=== PATIENT | male | born 1955 | race Caucasian/White ===

== ENCOUNTER 2020-05-17 11:19 | Observation (INO) ==
--- NOTE | 2020-05-10 11:15 | PAT Medication Instructions ---
Medication Instructions Date of Service May 10, 2020 Home Medications amlodipine 5 mg PO QAM aspirin [Aspir-81] 81 mg PO QAM atorvastatin 20 mg PO QPM lorazepam 0.5 mg PO BID PRN multivitamin 1 tab PO QAM triamterene-hydrochlorothiazide 1 tab PO QAM DO NOT take the morning of surgery multivitamin 1 tab PO QAM triamterene-hydrochlorothiazide 1 tab PO QAM Take morning of surgery With a small sip of water, OTHERWISE NOTHING TO EAT OR DRINK AFTER MIDNIGHT: lorazepam 0.5 mg PO BID PRN (if needed) amlodipine 5 mg PO QAM aspirin [Aspir-81] 81 mg PO QAM Take evening before surgery atorvastatin 20 mg PO QPM lorazepam 0.5 mg PO BID PRN (if needed) Other Notes If you have any questions please call us at [phone] or [phone] or [phone] or [phone]
--- NOTE | 2020-05-11 11:44 | Anesthesiology Consultation ---
Date of Service May 11, 2020 Assessment & Plan (1) Encounter for pre-operative examination: Chart Review Chart Review: Acceptable Risk for Surgery (pending Covid testing) and Patient seen in Pre Admission Testing Per PAT appt on 05/12/20, pt traveled to [facility] three weeks ago to visit [place]- no contact with others. 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 Denies travel to endemic areas. Wears PPE, washes hands and social distances. Pt getting Covid testing done three business days prior to surgery and will be social distancing and self quarantining both himself and household contacts from time of test until surgery. Teaching & Discussion Pre-Anesthesia Teaching/Discussion Notes: Instructed NPO after midnight before surgery,except medications with 15 cc of water. Medication instructions provided according to the PAT guidelines. History Surgery Operation Date: 03/18/20 08:30 Proposed Procedures p Left Uni Compartment Knee Arthroplasty - Garfield Singh DO Operation Date: 05/17/20 09:25 Proposed Procedures p Left Uni Compartment Left Knee Arthroplasty - Garfield Singh DO Height/Weight Height: 6 ft 2 in Weight: 100 kg Allergies Allergy/AdvReac Type Severity Reaction Status Date / Time No Known Allergies Allergy Verified 05/04/20 10:59 Medications Home Medications Medication Instructions Recorded Confirmed Last Taken amlodipine 5 mg PO QAM 02/10/20 05/04/20 Unknown aspirin [Aspir-81] 81 mg PO QAM 02/10/20 05/04/20 Unknown atorvastatin 20 mg PO QPM 02/10/20 05/04/20 Unknown lorazepam 0.5 mg PO BID PRN 02/10/20 05/04/20 Unknown multivitamin 1 tab PO QAM 02/10/20 05/04/20 Unknown triamterene-hydrochlorothiazid 1 tab PO QAM 02/10/20 05/04/20 Unknown Past Medical History Medical History Degenerative disc disease Fusion of spine LUMBAR (4 TOTAL LUMBAR SURGERIES) CERVICAL (1 SURGERY) Gout No recent flares Hyperlipidemia Hypertension Osteoarthritis Exercise / Class Metabolic Activity II 4-5 Yardwork/Stairs/Walk up hill (one flight stairs - no chest pain or SOB ) Past Family History Family History Other No significant family history Past Surgical History Surgical History H/O cervical spine surgery History of arthroscopy LEFT KNEE History of colonoscopy X MULTIPLE History of ear surgery RT EAR DRUM SURGERY History of tonsillectomy and adenoidectomy Hx of vasectomy [place] teeth removed Past Anesthesia History No Hx of Anesthesia Complications and No Family Hx of Anesthesia Complications History of PONV No Hx of PONV and No Hx of Motion Sickness Social History Smoking Status: Never smoker Do You Dip or Chew Tobacco: Yes (1 CAN PER 1 1/2) Hx Alcohol Use: Yes Alcohol type: beer, wine and hard liquor alcohol intake frequency: 3 or more drinks per day (2-3 daily ) Hx Substance Use: No substance use type: does not use Review of Systems Patient denies chest pain, shortness of breath, dyspnea on exertion, reflux, cough, wheezing, palpitations. No hx of seizures, stroke, ME, apnea/snoring. No hx of blood clots or blood transfusions Physical Exam Vital Signs VITALS BP 154/90 (usually well controlled) P 68 TEMP 98.4 SP02 96% RESP 16 Constitutional no acute distress ENMT Mouth: no TMJ clicking Thyromental Distance: > or= 3.5 Finger Breadths Mallampati Class: II Upper partial plate Caps and crowns on molars Neck + limited neck extension (mild) Respiratory normal respiratory effort; no respiratory distress Auscultation: lungs clear to auscultation bilaterally; no wheezes Cardiovascular Rate/Rhythm: regular rate and regular rhythm Heart Sounds: no murmur Vessels: no carotid bruit Musculoskeletal Spine: + pain with cervical ROM (minimal) Neurologic moves all extremities Psychiatric Orientation: alert Testing Laboratory Results 05/11/20 12:02 05/11/20 12:02 PT 10.5 Seconds (9.0-12.0) 05/11/20 12:02 INR 1.0 (0.9-1.1) 05/11/20 12:02 APTT 27.1 Seconds (21.0-31.0) 05/11/20 12:02 Blood Type A Positive 05/11/20 12:02 Antibody Screen NEGATIVE 05/11/20 12:02 Electrocardiogram Date: 05/11/20 Findings: + NSR @ (62) Chest X-Ray Date: 05/11/20 Findings: + NAD Stress Test Date: 07/29/15 Type: exercise (ECHO ) Resting EF: 55-59% Resting LV Function: normal Resting RWMA: + none Valvular Disease: no significant valvular disease Stress EKG response showed no evidence of ischemia. Exercise ECHO is normal without resting LV wall motion abnormalities or inducible ischemia. MPHR= 92%.
--- NOTE | 2020-05-11 12:28 | XRay Report ---
XR chest Pre-admission PA/Lat CLINICAL HISTORY: pat preoperative COMPARISON STUDY: 05/25/2013 FINDINGS: The bones soft tissues and hemidiaphragms are normal. The cardiomediastinal silhouette is n ormal. The lungs are clear. The pulmonary vasculature is normal. IMPRESSION: Negative chest. ACT 112: Negative or not required by law. The above report was generated using voice recognition software. It may contain grammatical, syntax or spelling errors. Electronically signed by: Fadi Escalante M.D. 05/11/2020 12:27 PM
[2020-05-11 13:32] LABS: Basophils # (auto) 0.04 K/uL (0-0.2); Basophils % (auto) 0.5 %; Eosinophils # (auto) 0.14 K/uL (0-0.5); Eosinophils % (auto) 1.9 %; Hemoglobin 14.8 g/dL (14.0-18.0); Immature Granulocytes # (auto) 0.02 K/uL (0.00-0.02); Immature Granulocytes % (auto) 0.3 %; Lymphocytes # (auto) 1.43 K/uL (1.2-3.4); Lymphocytes % (auto) 19.6 %; Mean Corpuscular Hemoglobin 29.5 pg (25-34); Mean Corpuscular Hgb Conc 34.4 g/dL (32-36); Mean Corpuscular Volume 85.7 fL (80-100); Mean Platelet Volume 10.7 fL (7.4-10.4); Monocytes # (auto) 0.74 K/uL (0.11-0.59); Monocytes % (auto) 10.2 %; Neutrophils # (auto) 4.92 K/uL (1.4-6.5); Neutrophils % (auto) 67.5 %; Platelet Count 240 K/uL (130-400); RDW Coefficient of Variation 13.1 % (11.5-14.5); RDW Standard Deviation 40.7 fL (36.4-46.3); Red Blood Count 5.02 M/uL (4.7-6.1); White Blood Count 7.29 K/uL (4.8-10.8)
[2020-05-11 13:50] LABS: Partial Thromboplastin Time 27.1 Seconds (21.0-31.0); Prothrombin Time 10.5 Seconds (9.0-12.0)
[2020-05-11 13:59] LABS: BUN Creatinine Ratio 10.7 (10-20); Calcium 9.3 mg/dl (8.5-10.1); Est GFR (African American) 103.6; Est GFR (Non-African American) 89.4; Potassium 3.7 mmol/L (3.5-5.1)
--- NOTE | 2020-05-11 15:32 | Electrocardiogram Report ---
Test Reason : Blood Pressure : / mmHG Vent. Rate : 062 BPM Atrial Rate : 062 BPM P-R Int : 144 ms QRS Dur : 092 ms QT Int : 416 ms P-R-T Axes : 073 -11 052 degrees QTc Int : 422 ms Normal sinus rhythm Normal ECG When compared with ECG of 25-MAY-2013 12:47, No significant change was found Confirmed by Solo Last ([id number]) on 05/11/2020 3:32:15 PM Referred By: Garfield Singh Confirmed By:Man Last
--- NOTE | 2020-05-16 07:57 | History & Physical Report ---
Date of Service May 16, 2020 Assessment & Plan (1) Osteoarthritis of left knee: We will proceed with a left unicompartmental knee arthroplasty. Postoperatively he will be placed on aspirin for DVT prophylaxis and kept overnight in the hospital for postoperative medical management. He plans to use energy physical therapy upon discharge. Abdulkadir is a low risk for joint replacement surgery. He does not have any major comorbidities. Present on Admission?: Yes History of Present Illness Chief Complaint: Primary osteoarthritis of the left knee Primary Care Provider: Everett Lu MD Abdulkadir is a pleasant 64-year-old male who I did a left knee arthroscopy on in the past. It showed medial compartmental arthritis. Unfortunately he has had recurrent effusions and continued pain. He is failed extensive conservative treatment including multiple injections. He has elected to proceed with a left unicompartmental knee arthroplasty. Allergies Allergy/AdvReac Type Severity Reaction Status Date / Time No Known Allergies Allergy Verified 05/04/20 10:59 Home Medications Home Medications Medication Instructions Recorded Confirmed Type amlodipine 5 mg PO QAM 02/10/20 05/04/20 History aspirin [Aspir-81] 81 mg PO QAM 02/10/20 05/04/20 History atorvastatin 20 mg PO QPM 02/10/20 05/04/20 History lorazepam 0.5 mg PO BID PRN 02/10/20 05/04/20 History multivitamin 1 tab PO QAM 02/10/20 05/04/20 History triamterene-hydrochlorothiazid 1 tab PO QAM 02/10/20 05/04/20 History Past Med/Surg History Medical History Degenerative disc disease Fusion of spine LUMBAR (4 TOTAL LUMBAR SURGERIES) CERVICAL (1 SURGERY) Gout No recent flares Hyperlipidemia Hypertension Osteoarthritis Surgical History H/O cervical spine surgery History of arthroscopy LEFT KNEE History of colonoscopy X MULTIPLE History of ear surgery RT EAR DRUM SURGERY History of tonsillectomy and adenoidectomy Hx of vasectomy Tilly teeth removed Family History Other No significant family history Social History Preferred Language: [place] Communication Ability: Effective 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 Beliefs That Will Affect Care: None Current Living Situation: Spouse and Family Feels Safe at Home: Yes Smoking Status: Never smoker Tobacco Type: e-cigarettes ; Second Hand Exposure: Yes (GROWING UP) ; Hx Alcohol Use: Yes Alcohol type: beer, wine and hard liquor Hx Substance Use: No Review of Systems Review of Systems: All systems reviewed & are unremarkable except as noted in HPI & below Physical Exam Constitutional: WD/WN, vitals as above Eyes: PERRL, conjunctivae normal, anicteric sclerae ENMT: external ear and nose normal, oropharynx normal Neck: trachea midline, no thyromegaly Respiratory: normal respiratory effort Cardiovascular: RRR, no murmur, no edema Gastrointestinal (Abdomen): normal bowel sounds, soft, nontender, no hepatosplenomegaly Musculoskeletal: On physical examination of the left knee there is a trace effusion. There is near full range of motion and no evidence of instability. There is significant tenderness palpation along the medial and lateral joint lines and over the distal femoral condyles. Psychiatric: A+Ox3, euthymic affect Results & Data Results & Data ([facility]) Diagnostic Findings Radiographs of the left knee demonstrate advanced osteoarthritis with joint space narrowing osteophyte formation and [id number] articulation. PG Care Time/CCT Total # of Minutes Spent Total Time Spent with Patient: Total time spent is greater than 50% in coordination of care (as documented) at patient's floor/unit and/or counseling patient: Coding Level of Care Code 31804 Initial Inpt Care Lvl 3 Diagnoses Osteoarthritis of left knee M17.12
--- NOTE | 2020-05-17 10:50 | History & Physical Bridge Note ---
Date of Service May 17, 2020 History & Physical Bridge Note I have examined the patient, reviewed the History & Physical and in the interval since the performance of the History & Physical I have noted the following changes of clinical significance: no changes noted
[~2020-05-17 11:19] MED LIST: ACETAMINOPHEN 500 MG TAB PO SCH; ATROPINE SULFATE 0.1 MG/ML 10ML SYR IV PRN; CEFAZOLIN 2000MG 2,000 MG/15 ML SYR IV SCH; FAMOTIDINE 20 MG TAB PO SCH; GABAPENTIN 600 MG DOSE PO SCH; HYDROmorphone INJ 1 MG/ML SYRINGE IV PRN; LABETALOL HCL IV 5 MG/ML 20ML IV PRN; LR 500ML BOLUS, THEN 15ML/HR IV SCH; LR 60ML/HR IV SCH; MEPERIDINE HCL 25 MG/ML CARP/VIAL IV PRN; MISSING PHYSICIAN SIGNATURE ON ORDER SCH; ONDANSETRON INJ 2 MG/ML 2 ML VIAL IV PRN; PHENYLEPHRINE 100MCG/ML 5ML SYR IV PRN; ROPIVACAINE 0.5% HCL/PF 150 MG, BUPIVACAINE 0.5% MPF 30 ML, EPINEPHrine 30MG/30ML (OR U... INSTIL SCH; TRANEXAMIC ACID 1,000 MG **IV Intra-op IV SCH; TRANEXAMIC ACID 1,000 MG **IV Pre-op IV SCH; dexAMETHasone 4 MG TAB PO SCH; ePHEDrine sulfate 50 MG/ML AMP IV PRN; fentaNYL citrate 100 MCG/2 ML VIAL IV PRN
[2020-05-17] MEDS ORDERED: BUPIVACAINE 0.5 % 5 MG/1 ML PF 10ML VIAL ONE (11:49)
[2020-05-17] MEDS ORDERED: EPINEPHrine INJ 1 MG/ML AMP ONE (11:50)
[2020-05-17] MEDS ORDERED: ROPIVACAINE 0.5% 5 MG/ML 30 ML VIAL ONE (11:50)
[2020-05-17] MEDS ORDERED: dexAMETHasone 4 MG TAB PO ONE (12:00)
[2020-05-17] MEDS ORDERED: TRANEXAMIC ACID / 0.7% NACL 1000MG/100ML BAG IV ONE ×2 (12:01→12:04)
[2020-05-17] MEDS ORDERED: FAMOTIDINE 20 MG TAB ONE (12:01)
[2020-05-17] MEDS ORDERED: ACETAMINOPHEN 500 MG TAB ONE (12:01)
[2020-05-17] MEDS ORDERED: GABAPENTIN 300 MG CAP ONE ×2 (12:01→12:04)
[2020-05-17] MEDS ORDERED: MIDAZOLAM HCL 1 MG/ML 2ML VIAL ONE (12:16)
[2020-05-17] MEDS ORDERED: CEFAZOLIN 2,000 MG/15 ML IV PUSH IV ONE (12:17)
[2020-05-17] MEDS ORDERED: ORTHO JOINT ANESTHETIC ONE (12:35)
[2020-05-17] MEDS ORDERED: GLYCOPYRROLATE 0.2 MG/ML VIAL ONE (13:00)
[2020-05-17] MEDS ORDERED: LIDOCAINE HCL 2% 2 ML VIAL/AMP(20MG/ML) INFIL ONE (13:00)
[2020-05-17] MEDS ORDERED: PROPOFOL IV EMULSION 10 MG/ML 20 ML VIAL IV ONE ×4 (13:00→13:57)
[2020-05-17] MEDS ORDERED: DEXAMETHASONE SOD INJ 4 MG/ML VIAL ONE (13:00)
[2020-05-17] MEDS ORDERED: ONDANSETRON INJ 2 MG/ML 2 ML VIAL ONE (13:00)
--- NOTE | 2020-05-17 14:06 | Operative Report ---
PG Post Operative Report Pre & Post Diagnosis Operation Date: 03/18/20 08:30 <No data on this case meets the specified criteria> Operation Date: 05/17/20 12:45 Pre-Op Diagnosis: LEFT KNEE DEGENERATIVE JOINT DISEASE Post-Op Diagnosis: LEFT KNEE DEGENERATIVE JOINT DISEASE I identified the patient and participated in the time-out.: Yes Procedure Operation Date: 03/18/20 08:30 <No data on this case meets the specified criteria> Operation Date: 05/17/20 12:45 Actual Procedures p Left Uni Compartment Left Knee Arthroplasty(Left) - Garfield Singh DO Surgeon Garfield Singh DO Line Patroller Garfield Keller PAC Estimated Blood Loss 10 Findings Consistent with Post-Op Diagnosis Specimens Left femoral and tibial bone Complications none Disposition Disposition: Recovery Room Indications Abdulkadir is a pleasant 64-year-old male who is been doing chronic left knee pain. I did arthroscopy of his left knee in the past and that showed advanced medial compartmental arthritis. After failing years of conservative treatment, he elected proceed with a left unicompartmental knee arthroplasty. Description of Procedure Implants used: I used a [employer] [place] unicompartmental knee arthroplasty system with a size medium femur, C tibia, and a size 5 mobile polyethylene bearing. All components were cemented in place with Palacos G cement. Abdulkadir arrived [facility] for the above procedure. He was seen in the preoperative holding area and the operative extremity was identified and signed. He was given a preoperative antibiotic, TXA, a spinal anesthetic and an adductor nerve block. He was taken back to the operating room and laid on the table in the supine position. He was given basic sedation. The operative knee was then prepped and draped in sterile fashion. A timeout was done, and the patient and the operative extremity was properly identified. A midline incision was made from the superior pole of the patella down to the tibial tubercle. Dissection was taken down to the extensor mechanism and a subvastus arthrotomy was used. The medial retinaculum was released and a small portion of the fat pad was excised. The knee was then placed in a leg estrella and the intra-articular portion of the knee was exposed. The medial meniscus was removed. The ACL was intact and the lateral compartment was inspected and there were no signs of any chondral damage. Several sizing spoons were used to measure the distal femur and it measured to be a size medium.The tibial saw guide was then placed externally over the shaft of the tibia. A 4 mm G clamp was used to clamp the spoon with the external tibial saw guide. 2 pins were placed. A reciprocating saw was then used to resect the tibia just medial to the apex of the medial tibial spine. An oscillating saw was then used to resect the tibial plateau. The tibial bone was then removed. The tibia measured to be a size C. The trochlea was then exposed. A 4 mm drill was sent down the center of the femoral canal followed by a long intramedullary alex. A line was then marked in the center of the distal medial femoral condyle. A femoral drill guide was then placed and the IM link was used to connect the intramedullary alex to the femoral drill guide. A 4 mm drill was used in the upper pole of the drill guide and a 6 mm drill was used in the lower pole of the drill guide. The drill guide was then removed. A posterior resection guide was then placed in the posterior femur was resected. A 0 spigot was then impacted in the 6 mm drill hole. The distal femur was then milled and osteophytes were removed. Femoral and tibial trials were then placed. A size 5 feeler gauge was used to measure the flexion gap in 100 of flexion. A size 1 feeler gauge was used to measure the extension gap in full extension. Trials were then removed and a size 4 spigot was then impacted in the 6 mm hole. The distal femur was once again milled. The anti- impingement guide was then impacted into place and an anterior mill was used to remove anterior bone and create clearance for the front of the bearing. The tibial template was then placed and the keel cut saw was used to resect for the keeled component. Trial components were then placed along with a size 5 mobile- bearing. The knee was brought through a full range of motion and felt to be stable. All trial components were then removed. Surrounding soft tissues were then injected with 50 cc of a pain control cocktail. Drill holes were placed in the distal femur to help with cement integration. The femoral and tibial components were then cemented in place with Palacos G cement. The size 5 mobile-bearing was then snapped into place. The knee was brought through a full range of motion and felt to be stable. The joint was then irrigated with normal saline solution. The tourniquet was deflated and hemostasis was obtained. The extensor mechanism was then closed with #1 Vicryl suture. Skin was closed with 2-0 Vicryl, 3-0V lock suture, and devon. A compressive dressing was then placed. He was then transferred to a hospital bed and taken to the postanesthesia care unit in stable condition. He tolerated the procedure well. Garfield Keller PA-C, was present for the entire procedure. He was critical for patient positioning, prepping, draping, retraction exposure, wound closure and application of sterile dressing. I attest to the content of the Intraoperative Record and any orders documented therein. Any exceptions are noted below.
--- NOTE | 2020-05-17 14:47 | XRay Report ---
TWO VIEWS LEFT KNEE CLINICAL HISTORY: Postoperative examination. FINDINGS: AP and crosstable lateral portable views of the left knee are obtained. A left knee hemiart hroplasty in the medial compartment is in near anatomic alignment. Degenerative narrowing is seen at the patellofemoral articulation. A calcified fabella is incidentally noted. No acute fracture is seen . There are expected postoperative changes around the knee including skin clips, soft tissue edema, a nd subcutaneous gas. IMPRESSION: Expected postoperative changes status post left knee hemiarthroplasty procedure. No acute fracture is seen. ACT 112: Negative or not required by law. Electronically signed by: Cristofer Bridges M.D. 05/17/2020 2:46 PM
--- NOTE | 2020-05-17 15:23 | Anesthesiology Progress Note ---
Date of Service May 17, 2020 Anesthesia Post Procedure Vital Signs Vital Signs: Temp Pulse Pulse Resp BP Pulse Ox 05/17/20 15:15 36.6 C 61 14 128/77 96 05/17/20 15:05 66 13 114/73 95 05/17/20 14:55 64 18 109/67 96 05/17/20 14:45 72 20 114/69 96 05/17/20 14:35 76 19 113/61 95 05/17/20 14:29 36.6 C 74 12 113/58 L 96 05/17/20 11:51 37.0 C 75 20 169/91 H 94 Pain Intensity Left Knee: Pain Intensity: 0 Transfer of Care Handoff Completed per policy Notes Mental Status: alert / awake / arousable and participated in evaluation Patient Amnestic to Procedure: Yes Nausea / Vomiting: adequately controlled Pain: adequately controlled Airway Patency, RR, SpO2: stable & adequate BP & HR: stable & adequate Hydration State: stable & adequate Neuraxial Anesthesia: was administered and sensory block is resolving Anesthetic Complications: no major complications apparent and Pt Satisfied with anesthetic care
[2020-05-17] MEDS ORDERED: OXYCODONE HCL IR 5 MG TAB (IMMEDIATE RELEASE) PO PRN (17:13)
[2020-05-17] MEDS ORDERED: ONDANSETRON INJ 2 MG/ML 2 ML VIAL IV PRN (17:13)
[2020-05-17] MEDS ORDERED: NALOXONE HCL 0.4 MG/1 ML VIAL/CARP IV PRN (17:13)
[2020-05-17] MEDS ORDERED: HYDROmorphone INJ 0.5 MG/0.5 ML SYR IV PRN (17:13)
[2020-05-17] MEDS ORDERED: SODIUM CHLORIDE 0.9% 1000ML 1,000 ML IV SCH (17:13)
[2020-05-17] MEDS ORDERED: bisacodyL 10 MG SUPP PR PRN (17:13)
[2020-05-17] MEDS ORDERED: METOCLOPRAMIDE HCL INJ 5 MG/ML 2 ML VIAL IV PRN (17:13)
[2020-05-17] MEDS ORDERED: MAGNESIUM HYDROXIDE SUSP 30 ML UDC PO PRN (17:13)
[2020-05-17] MEDS: CEFAZOLIN 2000MG 2,000 MG/15 ML SYR IV SCH (18:09)
[2020-05-17] MEDS: KETOROLAC 30 MG/ML VIAL IV SCH ×2 (18:09→23:22)
[2020-05-17] MEDS: ASPIRIN 81 MG ECTAB PO SCH (20:40)
[2020-05-17] MEDS: DOCUSATE SODIUM 100 MG CAP PO SCH (20:40)
[2020-05-17] MEDS: ACETAMINOPHEN 500 MG TAB PO SCH (20:40)
[2020-05-17] MEDS ORDERED: ATORVASTATIN 20 MG TAB PO SCH (21:00)
[2020-05-17] MEDS ORDERED: SENNA 8.6 MG TAB PO SCH (21:00)
[2020-05-18] MEDS: CEFAZOLIN 2000MG 2,000 MG/15 ML SYR IV SCH (02:19)
[2020-05-18] MEDS: ACETAMINOPHEN 500 MG TAB PO SCH (05:11)
[2020-05-18] MEDS: KETOROLAC 30 MG/ML VIAL IV SCH ×2 (05:12→11:59)
[2020-05-18 06:49] LABS: Hematocrit (blood only) 35.8 % (42-52); Hemoglobin 12.8 g/dL (14.0-18.0); Mean Corpuscular Hemoglobin 30.1 pg (25-34); Mean Corpuscular Hgb Conc 35.8 g/dL (32-36); Mean Corpuscular Volume 84.2 fL (80-100); Platelet Count 183 K/uL (130-400); RDW Coefficient of Variation 12.7 % (11.5-14.5); RDW Standard Deviation 38.5 fL (36.4-46.3); Red Blood Count 4.25 M/uL (4.7-6.1); White Blood Count 13.96 K/uL (4.8-10.8)
--- NOTE | 2020-05-18 06:57 | Orthopedic Progress Note ---
Date of Service May 18, 2020 Assessment & Plan (1) History of partial knee replacement: Overall he is doing very well. Is not having too much pain in the left knee. He will be seen by physical therapy this morning for ambulation and range of motion exercises. He is on aspirin for DVT prophylaxis. He can be discharged home later today. He will follow-up with orthopedics in 2 weeks. Present on Admission?: Yes Subjective Abdulkadir was seen and examined at bedside this morning. Overall he is doing very well. Is not having much pain in the left knee. He has been up and ambulating to the bathroom. He has no complaints. Physical Exam Musculoskeletal: On physical examination of the left knee, the dressing is clean and dry. His leg is out in full extension. He has active dorsiflexion and plantarflexion of the left ankle. Results & Data ([facility]) Vital Signs (Past 12 Hours) Vital Signs Temp Pulse Pulse Resp BP Pulse Ox 05/18/20 03:52 36.5 C 52 L 18 109/64 94 05/17/20 23:00 36.5 C 62 18 96/55 L 93 05/17/20 20:21 36.8 C 68 16 119/70 95 05/17/20 19:44 70 14 95/54 L 96 05/17/20 19:05 36.3 C L 69 18 106/62 97 Laboratory Results H & H 05/11/20 05/18/20 Range/Units 12:02 06:32 Hgb 14.8 12.8 L (14.0-18.0) g/dL Hct 43.0 35.8 L (42-52) % Coagulation 05/11/20 Range/Units 12:02 INR 1.0 (0.9-1.1) Diagnostic Findings Postoperative x-rays of the left knee show the prosthesis to be in anatomic ali gnment without any evidence of fracture, dislocation, or loosening. PG Care Time/CCT Total # of Minutes Spent Total Time Spent with Patient: Total time spent is greater than 50% in coordination of care (as documented) at patient's floor/unit and/or counseling patient: Coding Level of Care Code None Diagnoses History of partial knee replacement Z96.659
--- NOTE | 2020-05-18 06:59 | Discharge Summary ---
Date of Service May 18, 2020 Admission HPI Per Admitting Provider Abdulkadir is a pleasant 64-year-old male who I did a left knee arthroscopy on in the past. It showed medial compartmental arthritis. Unfortunately he has had recurrent effusions and continued pain. He is failed extensive conservative treatment including multiple injections. He has elected to proceed with a left unicompartmental knee arthroplasty. Principal Diagnosis Left partial knee replacement Discharge Data Allergies Allergy/AdvReac Type Severity Reaction Status Date / Time No Known Allergies Allergy Verified 05/17/20 11:40 Consultations 05/17/20 17:13 Consult Case Management - Discharge Planning Routine Procedures Performed Operation Date: 03/18/20 08:30 <No data on this case meets the specified criteria> Operation Date: 05/17/20 12:45 Actual Procedures p Left Uni Compartment Left Knee Arthroplasty(Left) - Garfield Singh DO Ordered Studies 05/17/20 05:00 US - OR guided needle placemen Routine Hospital Course (1) History of partial knee replacement: On May 17, 2020 Abdulkadir arrived at [facility] and underwent a left partial knee replacement without complication. He had a spinal anesthetic. Postoperatively he was started on aspirin for DVT prophylaxis and transferred to the general orthopedic floors. His hospital course was uneventful. On postop day #1 his H&H was stable and his pain was well controlled. He was able to part icipate well with physical therapy doing ambulation and range of motion exercises. He was then discharged home. He will follow-up with orthopedics in 2 weeks. Total Time Total Time Spent Total Time Spent (In Minutes): 20 Discharge Plan Discharge Items Patient Disposition: Home - Home Health Services Reason For Visit: LEFT KNEE DEGENERATIVE JOINT DISEASE Discharge Diagnosis: Left partial knee replacement Activity: As commented below Non-emergency contact: Surgeon Call non-emergency contact if: your wound has increased redness and your wound has increased drainage Follow-up/Referrals: Everett Lu MD [Primary Care Provider] - Diet: Regular Addtl Attending Provider Instructions: Activity and Therapy Recommendations: * If you are using [facility] then therapy will be provided at your home until they feel you have accomplished all of your goals. * If you are using [facility] then Physical Therapy will be provided until they feel you are ready to start Outpatient Physical Therapy. * If you are not using home therapy then Outpatient Physical Therapy should start about 3-5 days from your day of surgery. Therapy will last about 6-10 weeks * It is important not to put a pillow under your knee when you are relaxing or sleeping. It is just as important to make sure you are getting your knee perfectly straight as it is to regain your knee bend. * You were shown a series of exercises in the hospital. Do these exercises three times each day including the exercises you were shown in physical therapy. * Get up and walk several times each day. For the first four weeks, try not to stand or walk for more than one hour at a time. If you do stand or walk for more than one hour, you will not hurt anything, but your leg will likely swell. * As you feel comfortable, you may change from the walker or crutches to a cane and then to independent walking. Medications: * Narcotic You will likely be sent home from the hospital with a prescription for the narcotic pain medication that worked best throughout your stay. * Aspirin Most patients will be required to take Aspirin 81mg twice a day for 6 weeks after surgery. This is obtained [id number] and a prescription is not necessary. * Other medications may be prescribed for specific circumstances. If you have any questions, please call the office at . * Resume previous home medications unless otherwise instructed TEDs/Elastic Stockings: The white elastic stockings help limit swelling and prevent blood clots from forming in your legs.~ The more you wear them, the more they work. Wear them for six weeks. Dressing Care: Leave the silver dressing in place for 7 days. After 7 days you may remove the dressing. If the incision is not draining then you may leave the devon open to air. If there is a little bit of drainage or if the devon are getting stuck on your clothing then cover the incision with a dry dressing. The devon will be removed at your 2 week follow-up appointment. Showering: You may shower with the silver dressing in place. Do not scrub or soak the dressing. After 7 days you may remove the dressing and shower with the devon exposed. Let the soapy shower water run over the devon and pat them dry. Do not scrub or soak the incision. Things To Watch For: * Drainage from the incision site that occurs more than one week after your surgery. * Increased redness at the incision site. * Fever above 102 degrees Fahrenheit. * Unusual chest pain or shortness of breath. * Call [facility] at with any of the above problems Follow-Up Visit: Follow-up with Dr. Singh's PA (Garfield Keller) 2-3 weeks after your day of blake rgery. He will remove your devon and answer any questions. If you have any additional questions or concerns, Dr Singh is usually in the office at the same time and will be available An appointment was probably scheduled when you signed-up for surgery in the office. If you have any questions call Office Instructions: More detailed instructions as well as Frequently Asked Questions were provided in a folder by our office when you signed-up for surgery. Please review these instructions when you get home. If you have any further questions or concerns, please feel free to call the office at [phone] Pending Studies at Discharge: No Stand-Alone Forms: My [facility] Medications and DC Order Prescriptions: New oxycodone-acetaminophen [Percocet] 5-325 mg tablet 1 tab PO Q6H PRN (Reason: pain) Qty: 30 RF: 0 Continued multivitamin Tablet 1 tab PO QAM RF: 0 atorvastatin 20 mg Tablet 20 mg PO QPM RF: 0 amlodipine 5 mg Tablet 5 mg PO QAM RF: 0 lorazepam 0.5 mg Tablet 0.5 mg PO BID PRN (Reason: Anxiety) RF: 0 triamterene-hydrochlorothiazid 37.5-25 mg Tablet 1 tab PO QAM RF: 0 Changed aspirin [Aspir-81] 81 mg Tablet,Delayed Release (Dr/Ec) 81 mg PO BID 42 Days Qty: 0 RF: 0 Discharge Orders: Discharge Order (Routine); Ordered 05/18/20 Ordered By: Garfield Singh Admission Data Admit Date/Time: 05/17/20 14:32 Attending Provider: Garfield Singh Admit Provider: Garfield Singh Primary Care Provider: Everett Lu Coding Level of Care Code D/C Day Management <30 mins Diagnoses History of partial knee replacement Z96.659
[2020-05-18 07:17] LABS: Calcium 8.9 mg/dl (8.5-10.1); Creatinine Clr Calc Pharmacy 86.8 ml/min; Est GFR (African American) 82.4; Est GFR (Non-African American) 71.1; Potassium 4.1 mmol/L (3.5-5.1)
[2020-05-18] MEDS ORDERED: dexAMETHasone 4 MG TAB PO SCH (08:00)
[2020-05-18] MEDS ORDERED: TRIAMTERENE/HCTZ 37.5/25MG TAB PO SCH (09:00)
[2020-05-18] MEDS ORDERED: MULTIVITAMIN TAB PO SCH (09:00)
[2020-05-18] MEDS ORDERED: AMLODIPINE BESYLATE 5 MG TAB PO SCH (09:00)
[2020-05-18] MEDS: DOCUSATE SODIUM 100 MG CAP PO SCH (09:22)
[2020-05-18] MEDS: ASPIRIN 81 MG ECTAB PO SCH (09:22)
== END 2020-05-18 13:40 | disposition home health service (06) ==
LOC: ASU 11:19 → 3E 11:19

== ENCOUNTER 2020-08-23 05:21 | Observation (INO) ==
--- NOTE | 2020-08-15 13:49 | Anesthesiology Consultation ---
Date of Service August 15, 2020 Assessment & Plan (1) Encounter for pre-operative examination: S/P L unicompartmental knee arthroplasty 04/2020 @ [facility] -- SAB x 2 attempts, first at L4-L5, then successful at L3-L4 midline; regional block x 1. MAC. COVID Status: As of 08/15 nurse assessment, patient denies travel to endemic area, known exposure/sick contacts, or symptoms of COVID19. Preoperative COVID19 testing to be completed on 08/18 per surgeon's arrangements. Chart Review Chart Review: Acceptable Risk for Surgery and Patient NOT seen in Pre Admission Testing History Surgery Operation Date: 08/23/20 07:15 Proposed Procedures p Right Knee Arthrosplasty Total vs. - Garfield Singh DO s Uni-Compartmental Knee - Garfield Singh DO Height/Weight Height: 6 ft 2 in Weight: 95.254 kg Allergies Allergy/AdvReac Type Severity Reaction Status Date / Time No Known Allergies Allergy Verified 08/15/20 13:00 Medications Home Medications Medication Instructions Recorded Confirmed Last Taken amlodipine 5 mg PO QAM 02/10/20 08/15/20 05/17/20 08:30 atorvastatin 20 mg PO QPM 02/10/20 08/15/20 05/16/20 21:00 lorazepam 0.5 mg PO BID PRN 02/10/20 08/15/20 Unknown multivitamin 1 tab PO QAM 02/10/20 08/15/20 05/16/20 07:00 triamterene-hydrochlorothiazid 1 tab PO QAM 02/10/20 08/15/20 05/16/20 07:00 aspirin [Aspir-81] 81 mg PO BID 42 Days #0 tab 05/17/20 08/15/20 05/17/20 08:30 amoxicillin 500 mg tablet 2,000 mg PO ONCE PRN #4 tab 05/19/20 08/15/20 Unknown Past Medical History Medical History (Updated 08/15/20 @ 13:45 by [place]) Degenerative disc disease Gout No recent flares Hard of hearing Hyperlipidemia Hypertension Osteoarthritis Past Family History Family History Other No family history of adverse response to anesthesia No significant family history Past Surgical History Surgical History (Updated 08/15/20 @ 13:43 by [place]) Fusion of spine LUMBAR (4 TOTAL LUMBAR SURGERIES) CERVICAL (1 SURGERY) H/O cervical spine surgery History of arthroscopy LEFT KNEE History of colonoscopy X MULTIPLE History of ear surgery RT EAR DRUM SURGERY History of partial knee replacement (~04/2020) Left - 05/17/2020 [facility] History of tonsillectomy and adenoidectomy Hx of vasectomy Felicity teeth removed Social History Smoking Status: Never smoker tobacco type: smokeless tobacco Do You Dip or Chew Tobacco: Yes (5 cans weekly) Hx Alcohol Use: Yes Alcohol type: beer alcohol intake frequency: a few times a week Hx Substance Use: No substance use type: does not use Testing Laboratory Results Blood Type A Positive 08/02/20 10:08 Antibody Screen NEGATIVE 08/02/20 10:08 Laboratory Tests 08/02/20 08/02/20 08/02/20 10:08 10:08 10:08 WBC 6.53 Hgb 14.0 Hct 40.5 L Plt Count 228 PT 10.3 INR 1.0 APTT 27.2 Sodium 138 Potassium 3.9 Chloride 105 Carbon Dioxide 24 BUN 14 Creatinine 1.00 Glucose 86 Electrocardiogram Date: 05/11/20 Findings: + NSR @ (62bpm) Chest X-Ray Date: 05/11/20 Findings: + NAD
--- NOTE | 2020-08-18 09:42 | History & Physical Report ---
Date of Service August 18, 2020 Assessment & Plan (1) Osteoarthritis of right knee: We will proceed with a right partial knee replacement. Postoperatively he will be placed on aspirin and kept overnight in the hospital for postoperative medical management. He plans to do outpatient physical therapy upon discharge. Present on Admission?: Yes History of Present Illness Chief Complaint: Primary osteoarthritis of the right knee Primary Care Provider: Everett Lu MD Abdulkadir is a pleasant 65-year-old male who recently underwent a left partial knee replacement. He is doing extremely well with that. Unfortunately he has been dealing with a lot of right knee pain. 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 After failing conservative treatment, he has elected to proceed with a right partial knee replacement. Allergies Allergy/AdvReac Type Severity Reaction Status Date / Time No Known Allergies Allergy Verified 08/15/20 13:00 Home Medications Home Medications Medication Instructions Recorded Confirmed Type amlodipine 5 mg PO QAM 02/10/20 08/15/20 History atorvastatin 20 mg PO QPM 02/10/20 08/15/20 History lorazepam 0.5 mg PO BID PRN 02/10/20 08/15/20 History multivitamin 1 tab PO QAM 02/10/20 08/15/20 History triamterene-hydrochlorothiazid 1 tab PO QAM 02/10/20 08/15/20 History aspirin [Aspir-81] 81 mg PO BID 42 Days #0 tab 05/17/20 08/15/20 Rx amoxicillin 500 mg tablet 2,000 mg PO ONCE PRN #4 tab 05/19/20 08/15/20 Rx Past Med/Surg History Medical History Degenerative disc disease Gout No recent flares Hard of hearing Hyperlipidemia Hypertension Osteoarthritis Surgical History Fusion of spine LUMBAR (4 TOTAL LUMBAR SURGERIES) CERVICAL (1 SURGERY) H/O cervical spine surgery History of arthroscopy LEFT KNEE History of colonoscopy X MULTIPLE History of ear surgery RT EAR DRUM SURGERY History of partial knee replacement (~04/2020) Left - 05/17/2020 [facility] History of tonsillectomy and adenoidectomy Hx of vasectomy [place] teeth removed Family History Other No family history of adverse response to anesthesia No significant family history Social History Smoking Status: Never smoker Second Hand Exposure: No; Hx Alcohol Use: Yes Alcohol type: beer Hx Substance Use: No Preferred Language: Persian Communication Ability: Effective 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 Required: No Beliefs That Will Affect Care: None marital status: Current Living Situation: Spouse and Family Feels Safe at Home: Yes Assistive Devices: Glasses and Hearing Aid - Left Review of Systems Review of Systems: All systems reviewed & are unremarkable except as noted in HPI & below Physical Exam Constitutional: WD/WN, vitals as above Eyes: PERRL, conjunctivae normal, anicteric sclerae ENMT: external ear and nose normal, oropharynx normal Neck: trachea midline, no thyromegaly Respiratory: normal respiratory effort Cardiovascular: RRR, no murmur, no edema Gastrointestinal (Abdomen): normal bowel sounds, soft, nontender, no hepatosplenomegaly Musculoskeletal: On physical examination of the right knee there is a trace effusion. There is near full range of motion and no evidence of instability. There is significant tenderness palpation along the medial and lateral joint lines and over the distal femoral condyles. Psychiatric: A+Ox3, euthymic affect Results & Data Results & Data ([facility]) Diagnostic Findings Radiographs of the right knee demonstrate advanced osteoarthritis with joint space narrowing osteophyte formation and [id number] articulation. PG Care Time/CCT Total # of Minutes Spent Total Time Spent with Patient: Total time spent is greater than 50% in coordination of care (as documented) at patient's floor/unit and/or counseling patient: Coding Level of Care Code 75757 OBS Care - Level 2 Diagnoses Osteoarthritis of right knee M17.11
[2020-08-19 13:46] LABS: SARS CoV2 RNA (COVID-19) NOT DETECTED (NOT DETECTED)
[2020-08-23] MEDS ORDERED: LR 500ML BOLUS, THEN 15ML/HR IV SCH (06:00)
[2020-08-23] MEDS ORDERED: LR 60ML/HR IV SCH (06:00)
[2020-08-23] MEDS ORDERED: TRANEXAMIC ACID 1,000 MG **IV Intra-op IV SCH (06:00)
[2020-08-23] MEDS ORDERED: GABAPENTIN 600 MG DOSE PO SCH (06:00)
[2020-08-23] MEDS ORDERED: ACETAMINOPHEN 500 MG TAB PO SCH (06:00)
[2020-08-23] MEDS ORDERED: TRANEXAMIC ACID 1,000 MG **IV Pre-op IV SCH (06:00)
[2020-08-23] MEDS ORDERED: ROPIVACAINE 0.5% HCL/PF 150 MG, BUPIVACAINE 0.5% MPF 30 ML, EPINEPHrine 30MG/30ML (OR U... INSTIL SCH (06:00)
[2020-08-23] MEDS ORDERED: dexAMETHasone 4 MG TAB PO SCH (06:00)
[2020-08-23] MEDS ORDERED: CEFAZOLIN 2000MG 2,000 MG/15 ML SYR IV SCH (06:00)
[2020-08-23] MEDS ORDERED: FAMOTIDINE 20 MG TAB PO SCH (06:00)
[2020-08-23] MEDS ORDERED: BUPIVACAINE 0.5 % 5 MG/1 ML PF 10ML VIAL ONE (06:17)
[2020-08-23] MEDS ORDERED: BUPIVACAINE/EPINEPHRINE 0.25% 1:200,000 30 ML VIAL ONE (06:17)
[2020-08-23] MEDS ORDERED: DEXAMETHASONE SOD INJ 4 MG/ML VIAL ONE (06:18)
--- NOTE | 2020-08-23 06:38 | History & Physical Bridge Note ---
Date of Service August 23, 2020 History & Physical Bridge Note I have examined the patient, reviewed the History & Physical and in the interval since the performance of the History & Physical I have noted the following changes of clinical significance: no changes noted
[2020-08-23] MEDS ORDERED: ePHEDrine sulfate 50 MG/ML AMP IV PRN (06:53)
[2020-08-23] MEDS ORDERED: fentaNYL citrate 100 MCG/2 ML VIAL IV PRN (06:53)
[2020-08-23] MEDS ORDERED: ATROPINE SULFATE 0.1 MG/ML 10ML SYR IV PRN (06:53)
[2020-08-23] MEDS ORDERED: ONDANSETRON INJ 2 MG/ML 2 ML VIAL IV PRN ×2 (06:53→09:42)
[2020-08-23] MEDS ORDERED: ORTHO JOINT ANESTHETIC ONE (06:57)
[2020-08-23] MEDS ORDERED: MIDAZOLAM HCL 1 MG/ML 2ML VIAL ONE (06:58)
[2020-08-23] MEDS ORDERED: PROPOFOL IV EMULSION 10 MG/ML 20 ML VIAL IV ONE ×3 (07:50→08:37)
[2020-08-23] MEDS ORDERED: LIDOCAINE HCL 2% 2 ML VIAL/AMP(20MG/ML) INFIL ONE (07:50)
[2020-08-23] MEDS ORDERED: GLYCOPYRROLATE 0.2 MG/ML VIAL ONE (07:50)
--- NOTE | 2020-08-23 08:44 | Operative Report ---
PG Post Operative Report Pre & Post Diagnosis Operation Date: 08/23/20 07:15 Pre-Op Diagnosis: Left Knee Degenerative Joint Disease Post-Op Diagnosis: Left Knee Degenerative Joint Disease I identified the patient and participated in the time-out.: Yes Procedure Operation Date: 08/23/20 07:15 Actual Procedures p Right Knee Uni-Compartmental Arthroplasty, Cemented(Right) - Garfield Singh DO Surgeon Garfield Singh, Tube Balancer Garfield Keller PAC Estimated Blood Loss 10 Findings Consistent with Post-Op Diagnosis Specimens Right femoral and tibial bone Complications none Disposition Disposition: Recovery Room Indications Abdulkadir is a pleasant 65-year-old male who is been dealing with chronic increasing right knee pain. X-rays and clinical examination have been diagnostic for advanced osteoarthritis of the medial compartment of the right knee. He recently underwent a left unicompartmental knee arthroplasty and did very well with that. He is now elected to proceed with a right partial knee replacement. Description of Procedure Implants used: I used a [employer] Buchanan unicompartmental knee arthroplasty system with a size medium femur, B tibia, and a size 4 mm mobile polyethylene bearing. All components were cemented in place with Palacos G cement. Abdulkadir arrived [facility] for the above procedure. He was seen in the preoperative holding area and the operative extremity was identified and signed. He was given a preoperative antibiotic, TXA, a spinal anesthetic and an adductor nerve block. He was taken back to the operating room and laid on the table in the supine position. He was given basic sedation. The operative knee was then prepped and draped in sterile fashion. A timeout was done, and the patient and the operative extremity was properly identified. A midline incision was made from the superior pole of the patella down to the tibial tubercle. Dissection was taken down to the extensor mechanism and a subvastus arthrotomy was used. The medial retinaculum was released and a small portion of the fat pad was excised. The knee was then placed in a leg estrella and the intra-articular portion of the knee was exposed. The medial meniscus w as removed. The ACL was intact and the lateral compartment was inspected and there were no signs of any chondral damage. Several sizing spoons were used to measure the distal femur and it measured to be a size medium.The tibial saw guide was then placed externally over the shaft of the tibia. A 4 mm G clamp was used to clamp the spoon with the external tibial saw guide. 2 pins were placed. A reciprocating saw was then used to resect the tibia just medial to the apex of the medial tibial spine. An oscillating saw was then used to resect the tibial plateau. The tibial bone was then removed. The tibia measured to be a size B. The trochlea was then exposed. A 4 mm drill was sent down the center of the femoral canal followed by a long intramedullary alex. A line was then marked in the center of the distal medial femoral condyle. A femoral drill guide was then placed and the IM link was used to connect the intramedullary alex to the femoral drill guide. A 4 mm drill was used in the upper pole of the drill guide and a 6 mm drill was used in the lower pole of the drill guide. The drill guide was then removed. A posterior resection guide was then placed in the posterior femur was resected. A 0 spigot was then impacted in the 6 mm drill hole. The distal femur was then milled and osteophytes were removed. Femoral and tibial trials were then placed. A size 4 feeler gauge was used to measure the flexion gap in 100 of flexion. A size 2 feeler gauge was used to measure the extension gap in full extension. Trials were then removed and a size 2 spigot was then impacted in the 6 mm hole. The distal femur was once again milled. The anti- impingement guide was then impacted into place and an anterior mill was used to remove anterior bone and create clearance for the front of the bearing. The tibial template was then placed and the keel cut saw was used to resect for the keeled component. Trial components were then placed along with a size 4 mm mobile-bearing. The knee was brought through a full range of motion and felt to be stable. All trial components were then removed. Surrounding soft tissues were then injected with 50 cc of a pain control cocktail. Drill holes were placed in the distal femur to help with cement integration. The femoral and tibial components were then cemented in place with Palacos G cement. The size 4 mm mobile-bearing was then snapped into place. The knee was brought through a full range of motion and felt to be stable. The joint was then irrigated with normal saline solution. The tourniquet was deflated and hemostasis was obt ained. The extensor mechanism was then closed with #1 Vicryl suture. Skin was closed with 2-0 Vicryl, 3-0V lock suture, and devon. A Silverlon and a compressive dressing were placed. He was then transferred to a hospital bed and taken to the postanesthesia care unit in stable condition. He tolerated the procedure well. Garfield Keller PA-C, was present for the entire procedure. He was critical for patient positioning, prepping, draping, retraction exposure, wound closure and application of sterile dressing. I attest to the content of the Intraoperative Record and any orders documented therein. Any exceptions are noted below.
--- NOTE | 2020-08-23 09:13 | XRay Report ---
XR knee RT 1 or 2V routine CLINICAL HISTORY: Postop. Degenerative arthritis. COMPARISON STUDY: None. FINDINGS: 2 views of the right knee demonstrate a medial unicondylar knee prosthesis. The hardware is intact. Skin devon are in place. No fracture or dislocation. IMPRESSION: Status post medial unicondylar knee prosthesis. No evidence for hardware complication. ACT 112: Negative or not required by law. Electronically signed by: Ean Tavares M.D. 08/23/2020 9:12 AM
[2020-08-23] MEDS ORDERED: HYDROmorphone INJ 0.5 MG/0.5 ML SYR IV PRN (09:42)
[2020-08-23] MEDS ORDERED: NALOXONE HCL 0.4 MG/1 ML VIAL/CARP IV PRN (09:42)
[2020-08-23] MEDS ORDERED: bisacodyL 10 MG SUPP PR PRN (09:42)
[2020-08-23] MEDS ORDERED: METOCLOPRAMIDE HCL INJ 5 MG/ML 2 ML VIAL IV PRN (09:42)
[2020-08-23] MEDS ORDERED: MAGNESIUM HYDROXIDE SUSP 30 ML UDC PO PRN (09:42)
[2020-08-23] MEDS ORDERED: LORazepam 0.5 MG TAB PO PRN (09:42)
--- NOTE | 2020-08-23 09:56 | Anesthesiology Progress Note ---
Date of Service August 23, 2020 Anesthesia Post Procedure Vital Signs Vital Signs: Temp Pulse Pulse Pulse Resp BP BP 08/23/20 09:41 36.6 C 59 L 14 120/75 08/23/20 09:15 37.0 C 70 18 113/74 08/23/20 09:05 82 12 118/71 08/23/20 08:56 36.7 C 74 13 117/70 08/23/20 06:32 72 18 146/94 H 08/23/20 06:00 36.6 C 75 20 147/94 H Pulse Ox 08/23/20 09:41 94 08/23/20 09:15 92 08/23/20 09:05 93 08/23/20 08:56 96 08/23/20 06:32 95 08/23/20 06:00 95 Pain Intensity Right Knee: Pain Intensity: 0 Transfer of Care Handoff Completed per policy Notes Mental Status: alert / awake / arousable Patient Amnestic to Procedure: No Nausea / Vomiting: adequately controlled Pain: adequately controlled Airway Patency, RR, SpO2: stable & adequate BP & HR: stable & adequate Hydration State: stable & adequate Neuraxial Anesthesia: was administered and sensory block is resolving Anesthetic Complications: no major complications apparent and Pt Satisfied with anesthetic care
[2020-08-23] MEDS: SODIUM CHLORIDE 0.9% 1000ML 1,000 ML IV SCH ×2 (10:04→19:59)
[2020-08-23] MEDS: KETOROLAC 30 MG/ML VIAL IV SCH ×2 (10:35→18:29)
[2020-08-23] MEDS: DOCUSATE SODIUM 100 MG CAP PO SCH ×2 (10:35→20:47)
[2020-08-23] MEDS: ASPIRIN 81 MG ECTAB PO SCH ×2 (10:35→20:47)
[2020-08-23] MEDS: AMLODIPINE BESYLATE 5 MG TAB PO SCH (10:35)
[2020-08-23] MEDS: TRIAMTERENE/HCTZ 37.5/25MG TAB PO SCH (11:29)
[2020-08-23] MEDS: MULTIVITAMIN TAB PO SCH (11:29)
[2020-08-23] MEDS: ACETAMINOPHEN 500 MG TAB PO SCH ×2 (13:18→21:50)
[2020-08-23] MEDS: CEFAZOLIN 2000MG 2,000 MG/15 ML SYR IV SCH ×2 (14:48→21:50)
[2020-08-23] MEDS: OXYCODONE HCL IR 5 MG TAB (IMMEDIATE RELEASE) PO PRN (19:11)
[2020-08-23] MEDS ORDERED: SENNA 8.6 MG TAB PO SCH (21:00)
[2020-08-23] MEDS ORDERED: ATORVASTATIN 20 MG TAB PO SCH (21:00)
[2020-08-24] MEDS: KETOROLAC 30 MG/ML VIAL IV SCH ×2 (00:13→05:08)
[2020-08-24] MEDS: ACETAMINOPHEN 500 MG TAB PO SCH (05:09)
[2020-08-24] MEDS: SODIUM CHLORIDE 0.9% 1000ML 1,000 ML IV SCH (05:47)
[2020-08-24 06:24] LABS: Hematocrit (blood only) 37.3 % (42-52); Hemoglobin 12.8 g/dL (14.0-18.0); Mean Corpuscular Hgb Conc 34.3 g/dL (32-36); Mean Corpuscular Volume 84.4 fL (80-100); Platelet Count 223 K/uL (130-400); RDW Coefficient of Variation 13.3 % (11.5-14.5); Red Blood Count 4.42 M/uL (4.7-6.1); White Blood Count 14.63 K/uL (4.8-10.8)
[2020-08-24 06:58] LABS: BUN Creatinine Ratio 15.6 (10-20); Calcium 8.6 mg/dl (8.5-10.1); Creatinine Clr Calc Pharmacy 99.7 ml/min; Est GFR (African American) 105.7; Est GFR (Non-African American) 91.2; Potassium 3.7 mmol/L (3.5-5.1)
--- NOTE | 2020-08-24 06:59 | Orthopedic Progress Note ---
Date of Service August 24, 2020 Assessment & Plan (1) Status post right partial knee replacement: Overall he is doing as well as expected. He will be seen by physical therapy this morning for ambulation and range of motion exercises. He can be discharged home later today. He is on aspirin for DVT prophylaxis. He will follow-up with orthopedics in 2 weeks. Present on Admission?: No Admission and Anticipated Discharge Date Admission Date: August 23, 2020 Audrey Panchal was seen and examined at bedside this morning. Overall he is doing very well. Is not having too much pain on the right knee. He has been up and ambulating around the nurses station. He has no complaints. Physical Exam Musculoskeletal: On physical examination of the right knee, the dressing has been reinforced. His legs out in full extension. He has active dorsiflexion and plantarflexion of the right ankle. Results & Data ([facility]) Vital Signs (Past 12 Hours) Vital Signs Temp Pulse Resp BP Pulse Ox 08/24/20 02:30 36.5 C 66 16 147/85 H 96 08/24/20 00:10 36.5 C 64 16 148/72 H 95 08/23/20 19:28 36.6 C 70 17 135/74 94 Laboratory Results H & H 08/24/20 Range/Units 06:05 Hgb 12.8 L (14.0-18.0) g/dL Hct 37.3 L (42-52) % Diagnostic Findings Postoperative x-rays of the right knee show the prosthesis to be in anatomic alignment without any evidence of fracture, dislocation, or loosening. PG Care Time/CCT Total # of Minutes Spent Total Time Spent with Patient: Total time spent is greater than 50% in co ordination of care (as documented) at patient's floor/unit and/or counseling patient: Coding Level of Care Code None Diagnoses Status post right partial knee replacement Z96.651
--- NOTE | 2020-08-24 07:01 | Discharge Summary ---
Date of Service August 24, 2020 Admission HPI Per Admitting Provider Abdulkadir is a pleasant 65-year-old male who recently underwent a left partial knee replacement. He is doing extremely well with that. Unfortunately he has been dealing with a lot of right knee pain. 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 After failing conservative treatment, he has elected to proceed with a right partial knee replacement. Principal Diagnosis Right partial knee replacement Discharge Data Allergies Allergy/AdvReac Type Severity Reaction Status Date / Time No Known Allergies Allergy Verified 08/23/20 05:53 Consultations 08/23/20 09:42 Consult Case Management - Discharge Planning Routine Procedures Performed Operation Date: 08/23/20 07:15 Actual Procedures p Right Knee Uni-Compartmental Arthroplasty, Cemented(Right) - Garfield Singh DO Ordered Studies 08/23/20 05:00 US - OR guided needle placemen Routine Hospital Course (1) Status post right partial knee replacement: On August 23 2020 Abdulkadir arrived at [facility] and underwent a right partial knee replacement without complication. He had a spinal anesthetic. Postoperatively he was placed on aspirin for DVT prophylaxis and transferred to the general orthopedic floors. His hospital course was uneventful. On postop day #1 his H&H was stable and his pain was well controlled. He was able to participate well with physical therapy doing ambulation and range of motion exercises. He was then discharged home. He will follow-up with orthopedics in 2 weeks. Total Time Total Time Spent Total Time Spent (In Minutes): 20 Discharge Plan Discharge Items Patient Disposition: Home - Home Health Services Reason For Visit: Left Knee DJD, Left Knee Pain Discharge Diagnosis: Left partial knee replacement Activity: As commented below Non-emergency contact: Surgeon Call non-emergency contact if: your wound has increased redness and your wound has increased drainage Follow-up/Referrals: Everett Lu MD [Primary Care Provider] - Diet: Regular Addtl Attending Provider Instructions: Activity and Therapy Recommendations: * If you are using [facility] then therapy will be provided at your home until they feel you have accomplished all of your goals. * If you are using [facility] then Physical Therapy will be provided until they feel you are ready to start Outpatient Physical Therapy. * If you are not using home therapy then Outpatient Physical Therapy should start about 3-5 days from your day of surgery. Therapy will last about 6-10 weeks * It is important not to put a pillow under your knee when you are relaxing or sleeping. It is just as important to make sure you are getting your knee perfectly straight as it is to regain your knee bend. * You were shown a series of exercises in the hospital. Do these exercises three times each day including the exercises you were shown in physical therapy. * Get up and walk several times each day. For the first four weeks, try not to stand or walk for more than one hour at a time. If you do stand or walk for more than one hour, you will not hurt anything, but your leg will likely swell. * As you feel comfortable, you may change from the walker or crutches to a cane and then to independent walking. Medications: * Narcotic You will likely be sent home from the hospital with a prescription for the narcotic pain medication that worked best throughout your stay. * Aspirin Most patients will be required to take Aspirin 81mg twice a day for 6 weeks after surgery. This is obtained [id number] and a prescription is not necessary. * Other medications may be prescribed for specific circumstances. If you have any questions, please call the office at . * Resume previous home medications unless otherwise instructed TEDs/Elastic Stockings: The white elastic stockings help limit swelling and prevent blood clots from forming in your legs.~ The more you wear them, the more they work. Wear them for six weeks. Dressing Care: Leave the Silverlon dressing in place for 7 days. After 7 days you may remove the dressing. If the incision is not draining then you may leave the devon open to air. If there is a little bit of drainage or if the devon are getting stuck on your clothing then cover the incision with a dry dressing. The devon will be removed at your 2 week follow-up appointment. Showering: You may shower with the Silverlon dressing in place. Do not let the shower spray hit the dressing directly. Pat the Silverlon dressing dry. If the dressing becomes wet underneath, then simply remove the dressing. Keep the incision dry until you are 7 days out from the day of surgery. After 7 days you may remove the Silverlon dressing and shower with the devon exposed. Let soapy water run over the devon and pat them dry. Do not scrub or soak the incision. Things To Watch For: * Drainage from the incision site that occurs more than one week after your surgery. * Increased redness at the incision site. * Fever above 102 degrees Fahrenheit. * Unusual chest pain or shortness of breath. * Call [facility] at with any of the above problems Follow-Up Visit: Follow-up with Dr. Singh's PA (Garfield Keller) 2-3 weeks after your day of surgery. He will remove your devon and answer any questions. If you have any additional questions or concerns, Dr Singh is usually in the office at the same time and will be available An appointment was probably scheduled when you signed-up for surgery in the office. If you have any questions call Office Instructions: More detailed instructions as well as Frequently Asked Questions were provided in a folder by our office when you signed-up for surgery. Please review these instructions when you get home. If you have any further questions or concerns, please feel free to call the office at [phone] Pending Studies at Discharge: No Stand-Alone Forms: My [facility], Smoking Cessation Medications and DC Order Prescriptions: New oxycodone 5 mg tablet 5 mg PO Q6H PRN (Reason: pain) Qty: 30 RF: 0 Continued amoxicillin 500 mg tablet 2,000 mg PO ONCE PRN (Reason: prophylaxis) Qty: 4 RF: 2 multivitamin Tablet 1 tab PO QAM RF: 0 atorvastatin 20 mg Tablet 20 mg PO QPM RF: 0 amlodipine 5 mg Tablet 5 mg PO QAM RF: 0 lorazepam 0.5 mg Tablet 0.5 mg PO BID PRN (Reason: Anxiety) RF: 0 triamterene-hydrochlorothiazid [Maxzide-25mg] 37.5-25 mg Tablet 1 tab PO QAM RF: 0 Changed aspirin 81 mg tablet,delayed release (DR/EC) 81 mg PO BID 42 Days Qty: 0 RF: 0 Discharge Orders: Discharge Order (Routine); Ordered 08/24/20 Ordered By: Garfield Singh Admission Data Admit Date/Time: 08/23/20 08:59 Attending Provider: Garfield Singh Admit Provider: Garfield Singh Primary Care Provider: Everett Lu Coding Level of Care Code D/C Day Management <30 mins Diagnoses Status post right partial knee replacement Z96.651
[2020-08-24] MEDS ORDERED: dexAMETHasone 4 MG TAB PO SCH (08:00)
[2020-08-24] MEDS: AMLODIPINE BESYLATE 5 MG TAB PO SCH (08:42)
[2020-08-24] MEDS: TRIAMTERENE/HCTZ 37.5/25MG TAB PO SCH (08:42)
[2020-08-24] MEDS: ASPIRIN 81 MG ECTAB PO SCH (08:42)
[2020-08-24] MEDS: MULTIVITAMIN TAB PO SCH (08:43)
[2020-08-24] MEDS: DOCUSATE SODIUM 100 MG CAP PO SCH (08:43)
[2020-08-24] MEDS: OXYCODONE HCL IR 5 MG TAB (IMMEDIATE RELEASE) PO PRN (08:47)
== END 2020-08-24 11:42 | disposition home health service (06) ==
LOC: ASU 05:21 → 3E 05:21

== ENCOUNTER 2023-09-19 07:10 | Inpatient (IN) ==
[2023-09-19] MEDS ORDERED: EPINEPHrine ADULT AUTO-INJECT 0.3 MG SYR IM ONE (07:24)
[2023-09-19] MEDS ORDERED: methylPREDNISolone 125 MG/2 ML VIAL ONE (07:28)
[2023-09-19] MEDS ORDERED: diphenhydrAMINE 50 MG/ML VIAL ONE (07:28)
[2023-09-19] MEDS ORDERED: FAMOTIDINE 20MG/5ML IV PUSH IV ONE (07:29)
[2023-09-19] MEDS ORDERED: ALBUT/IPRATROP 3MG/0.5MG NEB 3 ML VIAL ONE (07:33)
[2023-09-19] MEDS ORDERED: ALBUT/IPRATROP 3MG/0.5MG NEB 3 ML VIAL NEB STA (07:36)
[2023-09-19] MEDS ORDERED: methylPREDNISolone 125 MG/2 ML VIAL IV STA (07:41)
[2023-09-19] MEDS ORDERED: FAMOTIDINE 20MG IV PUSH 20 MG/5 ML SYR IV STA (07:41)
[2023-09-19] MEDS ORDERED: EPINEPHrine ADULT AUTO-INJECT 0.3 MG SYR IM STA (07:41)
[2023-09-19] MEDS ORDERED: diphenhydrAMINE 50 MG/ML VIAL IV STA (07:41)
--- NOTE | 2023-09-19 07:53 | Emergency Department Note ---
Impression & Plan Anaphylaxis, Allergic reaction, Hypoxia, Facial swelling ED Provider Note NAME: TOM NEFF AGE: 68 SEX: M : 1955 ARRIVES VIA: Walk-In INFORMANT: [Patient] ED PROVIDER(S): [Cristofer Castillo MD] CHIEF COMPLAINT: Allergic reaction HISTORY OF PRESENT ILLNESS: The patient is a 68-year-old male who states that a short time ago, he took an amoxicillin. He has been on this medication before. He took the medication because he thought he was developing an infection in his right great toe. About 15 minutes after taking the antibiotic, he began to feel hot and itchy and sweaty. He began to notice swelling of his tongue and lips and felt short of breath. He presented to the hospital. The patient was hypoxic upon arrival with edema to his lips and tongue, he was rapidly brought back to a large trauma room. Prior to my seeing the patient, nursing staff had administered 0.3 mg of IM epinephrine PMHx/PSHx/Social Hx: See Below PHYSICAL EXAM: GENERAL: Patient is in no acute distress. HEENT: The patient did have edema to the lips and tongue. No uvular edema. NECK: No stridor, no adenopathy, no meningismus, trachea is midline. LUNGS: Clear to auscultation bilaterally, no wheeze, no rhonchi, breath sounds equal. HEART: Without murmurs gallops or rubs, regular rate and rhythm. ABDOMEN: Soft, nontender, no peritonitis. EXTREMITIES: No cyanosis, full range of motion of all the joints without pain or difficulty. The patient did have tenderness along the lateral aspect of the right first toe, no cellulitis appreciated. NEUROLOGIC: Oriented x 3, no acute motor or sensory deficits, no focal weakness. SKIN: No jaundice, no diaphoresis. Generalized flushing of his skin noted. DIFFERENTIAL DIAGNOSIS: Anaphylaxis, uvular edema, angioedema, respiratory compromise, medication reaction, allergic reaction, others. EMERGENCY DEPARTMENT PROCEDURES: MEDICAL DECISION MAKING: There is no leukocytosis or concerning anemia. There is a normal platelet count. Potassium slightly low at 3.3. No renal failure. Chest film did not show pneumonia or CHF. On exam, the patient had tongue and lip swelling. He presented hypoxic but this improved with treatment. The patient presents with anaphylaxis from what appears to be a dose of a moxicillin. The patient was given IM epinephrine, IV Solu-Medrol, IV Pepcid, a DuoNeb and IV Benadryl. He received supplemental oxygen. Patient has made some improvement but is not stable for discharge. Given the facial swelling, given the hypoxia, I do think the patient deserves a hospital stay and further observation. Prior/Outside records/notes reviewed: Previous orthopedic note. ECG per my interpretation: Indication was shortness of breath. The ECG shows a normal sinus rhythm with a rate of 91. There is some diffuse ST depression seen. No ST elevation. There is some baseline artifact. No PVCs. The QTc is 469. Compared to an ECG from 01 January 2021, the ST changes appear somewhat more pronounced. Continuous Cardiac Monitoring per my interpretation: An order was placed for continuous cardiac monitoring. The monitor shows a rate of 74 with normal sinus rhythm. Imaging/x-ray results per my interpretation: Chest x-ray did not show CHF, pneumonia or pneumothorax. Chronic Medical/Social conditions affecting care: None Care/Management discussed with: Case management and the hospitalist. Level of care consideration(s): After review of the information above and other included data: --the patient's presentation requires admission Observation Note: The patient was placed in observation status at 0730. Observation was initiated to ensure improvement from his anaphylaxis. During the time in observation, the patient was frequently reassessed and received IM epinephrine, IV steroids, supplemental oxygen and continuous cardiac monitoring. On Final reassessment the patient was somewhat improved but in need of further observation/care--the patient will be admitted at this time. Total observation time of around 4 hours. DISPOSITION: Admitted Past Med/Surg History Medical History Degenerative disc disease Gout No recent flares Hard of hearing Hyperlipidemia Hypertension Osteoarthritis Surgical History Fusion of spine LUMBAR (4 TOTAL LUMBAR SURGERIES) CERVICAL (1 SURGERY) H/O cervical spine surgery History of arthroscopy LEFT KNEE History of colonoscopy X MULTIPLE History of ear surgery RT EAR DRUM SURGERY History of partial knee replacement (~04/2020) Left - 05/17/2020 [facility] History of tonsillectomy and adenoidectomy Hx of vasectomy Status post right partial knee replacement (~07/2020) [place] teeth removed Family History Other No family history of adverse response to anesthesia No significant family history Social History Smoking Status: Never smoker Second Hand Exposure: No; Do You Dip or Chew Tobacco: Yes (5 cans weekly); Hx Alcohol Use: Yes Alcohol type: beer Hx Substance Use: No Preferred Language: Kazakh Communication Ability: Effective Labor 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 Negotiator Required: No Beliefs That Will Affect Care: None marital status: Current Living Situation: Spouse and Family Feels Safe at Home: Yes Assistive Devices: Hearing Aid - Right and Walker Allergies Allergies Allergy/AdvReac Type Severity Reaction Status Date / Time Penicillins Allergy Severe Anaphylaxis Verified 09/19/23 09:37 Home Meds Home Medications Medication Instructions Recorded Confirmed atorvastatin 20 mg tablet 20 mg PO QPM 02/10/20 09/19/23 multivitamin 1 tab PO QAM 02/10/20 09/19/23 triamterene 37.5 1 tab PO QAM 02/10/20 09/19/23 mg-hydrochlorothiazide 25 mg tablet (Maxzide-25mg) ibuprofen 600 mg tablet 600 mg PO QAM 09/19/23 09/19/23 Previous Rx's Medication Instructions Recorded amoxicillin 500 mg tablet 2,000 mg PO ONCE PRN prophylaxis 05/19/20 #4 tabs aspirin 81 mg tablet,delayed 81 mg PO BID 42 days #0 tabs 08/23/20 release Results & Data (ED) Vital Signs Vital Signs - 24 hr 09/19/23 07:25 09/19/23 07:36 09/19/23 07:44 Pulse Rate 91 H 79 Pulse Rate [Apical] Pulse Rate from SpO2 Sensor Respiratory Rate 18 Respiratory Effort / Characteristics Non-Labored Respiratory Depth Normal Respiratory Pattern Blood Pressure 120/80 Blood Pressure [Right Arm] Blood Pressure Mean 93 Blood Pressure Mean [Right Arm] Pulse Oximetry 86 L 85 L Oxygen Delivery Method Room Air Nasal Cannula Oxygen Flow Rate Sepsis Recent Fever Within 48 Hours No Sepsis New/Unexplained Change in Mental Status N/A Sepsis Action Taken by Nursing No Action Required Oxygen Flow Rate - Titration 2 Pulse Oximetry Post Tiitration 98 09/19/23 07:47 09/19/23 07:27 09/19/23 07:27 Pulse Rate 91 H Pulse Rate [Apical] 76 Pulse Rate from SpO2 Sensor 91 H Respiratory Rate 22 17 Respiratory Effort / Characteristics Non-Labored Spontaneous Respiratory Depth Normal Respiratory Pattern Regular Blood Pressure 120/80 Blood Pressure [Right Arm] 136/84 Blood Pressure Mean 83 Blood Pressure Mean [Right Arm] 101 Pulse Oximetry 96 88 L Oxygen Delivery Method Nasal Cannula Oxygen Flow Rate 2 Sepsis Recent Fever Within 48 Hours Sepsis New/Unexplained Change in Mental Status Sepsis Action Taken by Nursing Oxygen Flow Rate - Titration Pulse Oximetry Post Tiitration 09/19/23 07:30 09/19/23 07:30 09/19/23 07:45 Pulse Rate 85 76 Pulse Rate [Apical] Pulse Rate from SpO2 Sensor 85 76 Respiratory Rate 21 15 Respiratory Effort / Characteristics Respiratory Depth Respiratory Pattern Blood Pressure 136/84 Blood Pressure [Right Arm] Blood Pressure Mean 93 Blood Pressure Mean [Right Arm] Pulse Oximetry 91 96 Oxygen Delivery Method Nasal Cannula Nasal Cannula Oxygen Flow Rate 2 2 Sepsis Recent Fever Within 48 Hours Sepsis New/Unexplained Change in Mental Status Sepsis Action Taken by Nursing Oxygen Flow Rate - Titration Pulse Oximetry Post Tiitration 09/19/23 08:00 09/19/23 08:00 09/19/23 08:15 Pulse Rate 76 Pulse Rate [Apical] Pulse Rate from SpO2 Sensor 75 Respiratory Rate 16 Respiratory Effort / Characteristics Respiratory Depth Respiratory Pattern Blood Pressure 162/78 H 148/80 H Blood Pressure [Right Arm] Blood Pressure Mean 122 105 Blood Pressure Mean [Right Arm] Pulse Oximetry 96 Oxygen Delivery Method Nasal Cannula Oxygen Flow Rate 2 Sepsis Recent Fever Within 48 Hours Sepsis New/Unexplained Change in Mental Status Sepsis Action Taken by Nursing Oxygen Flow Rate - Titration Pulse Oximetry Post Tiitration 09/19/23 08:15 09/19/23 08:30 09/19/23 08:30 Pulse Rate 73 72 Pulse Rate [Apical] Pulse Rate from SpO2 Sensor 73 73 Respiratory Rate 16 16 Respiratory Effort / Characteristics Respiratory Depth Respiratory Pattern Blood Pressure 137/74 Blood Pressure [Right Arm] Blood Pressure Mean 101 Blood Pressure Mean [Right Arm] Pulse Oximetry 98 97 Oxygen Delivery Method Nasal Cannula Nasal Cannula Oxygen Flow Rate 2 2 Sepsis Recent Fever Within 48 Hours Sepsis New/Unexplained Change in Mental Status Sepsis Action Taken by Nursing Oxygen Flow Rate - Titration Pulse Oximetry Post Tiitration 09/19/23 08:45 09/19/23 08:45 Pulse Rate 74 Pulse Rate [Apical] Pulse Rate from SpO2 Sensor 74 Respiratory Rate 17 Respiratory Effort / Characteristics Respiratory Depth Respiratory Pattern Blood Pressure 132/81 Blood Pressure [Right Arm] Blood Pressure Mean 101 Blood Pressure Mean [Right Arm] Pulse Oximetry 97 Oxygen Delivery Method Nasal Cannula Oxygen Flow Rate 2 Sepsis Recent Fever Within 48 Hours Sepsis New/Unexplained Change in Mental Status Sepsis Action Taken by Nursing Oxygen Flow Rate - Titration Pulse Oximetry Post Tiitration Home Medications Current Medication List: was personally reviewed by me Laboratory Data Attestation: I reviewed the patient's lab results. 09/19/23 07:30 09/19/23 07:30 Lab Results 09/19/23 09/19/23 Range/Units 07:30 07:30 WBC 10.27 (4.8-10.8) K/ul RBC 5.98 (4.70-6.10) M/uL Hgb 17.5 (14.0-18.0) g/dl Hct 49.8 (42.0-52.0) % MCV 83.3 (80.0-100.0) fL MCH 29.3 (25.0-34.0) pg MCHC 35.1 (32.0-36.0) g/dL RDW Std Deviation 39.4 (36.4-46.3) fL RDW Coeff of Kylee 13.1 (11.5-14.5) % Plt Count 350 (130-400) K/uL MPV 10.6 (9.4-12.4) fL Immature Gran % (Auto) 0.6 % Neut % (Auto) 59.1 % Lymph % (Auto) 31.1 % Barton % (Auto) 7.5 % Eos % (Auto) 1.3 % Baso % (Auto) 0.4 % Neut # (Auto) 6.08 (1.40-6.50) K/uL Lymph # (Auto) 3.19 (1.20-3.40) K/uL Barton # (Auto) 0.77 H (0.11-0.59) K/uL Eos # (Auto) 0.13 (0.00-0.50) K/uL Baso # (Auto) 0.04 (0.00-0.20) K/uL Immature Gran # (Auto) 0.06 (0.01-0.20) K/uL Sodium 138 (136-145) mmol/L Potassium 3.3 L (3.5-5.1) mmol/L Chloride 102 (98-107) mmol/L Carbon Dioxide 24 (21-32) mmol/L Anion Gap 12 H (3-11) BUN 16 (6-23) mg/dl Creatinine 1.23 (0.6-1.4) mg/dl Est Cr Clr Drug Dosing 72.6 ml/min Est GFR ( Amer) 70.0 ml/min Est GFR (Non-Af Amer) 60.4 ml/min BUN/Creatinine Ratio 13.0 (10-20) Glucose 190 H (70-99(Fasting)) mg/dl Calcium 10.0 (8.6-10.3) mg/dl Administered Medications Discontinued Medications Albuterol (Albut/Ipratrop 3mg/0.5mg Neb 3 Ml Vial) Confirm Administered Dose 3 ml .ROUTE .[employer] ONE Stop: 09/19/23 07:34 Last Admin: 09/19/23 07:34 Dose: 3 ml Documented By: FRANKIE Albuterol (Albut/Ipratrop 3mg/0.5mg Neb 3 Ml Vial) 3 ml NEB NOW STA; Protocol Stop: 09/19/23 07:37 Last Admin: 09/19/23 07:39 Dose: 3 ml Documented By: DAYNA Diphenhydramine HCl (Diphenhydramine 50 Mg/Ml Vial) Confirm Administered Dose 50 mg .ROUTE .[employer] ONE Stop: 09/19/23 07:29 Last Admin: 09/19/23 07:34 Dose: 50 mg Documented By: FRANKIE Diphenhydramine HCl (Diphenhydramine 50 Mg/Ml Vial) 50 mg IV NOW STA Stop: 09/19/23 07:42 Last Admin: 09/19/23 07:59 Dose: Not Given Documented By: DAYNA Epinephrine HCl (Epinephrine Adult Auto-Inject 0.3 Mg Syr) Confirm Administered Dose 0.3 mg IM .[employer] ONE Stop: 09/19/23 07:25 Last Admin: 09/19/23 07:34 Dose: 0.3 mg Documented By: FRANKIE Epinephrine HCl (Epinephrine Adult Auto-Inject 0.3 Mg Syr) 0.3 mg IM NOW STA Stop: 09/19/23 07:42 Last Admin: 09/19/23 07:59 Dose: Not Given Documented By: DAYNA Famotidine (Famotidine 20mg/5ml Iv Push) Confirm Administered Dose 20 mg IV .STK-MED ONE Stop: 09/19/23 07:30 Last Admin: 09/19/23 07:34 Dose: 20 mg Documented By: FRANKIE Famotidine (Pepcid 20mg Iv Push) 20 mg in 5 mls @ 2.5 mls/min IV NOW STA Stop: 09/19/23 07:42 Last Admin: 09/19/23 07:59 Dose: Not Given Documented By: DAYNA Potassium Chloride (K Dario / Wtr) 10 meq in 100 mls @ 100 mls/hr IV Q1H ABIGAIL Stop: 09/19/23 11:44 Last Admin: 09/19/23 13:02 Dose: 33 mls/hr Documented By: Infusion: 09/19/23 13:02 Dose: 33 mls/hr Documented By: Admin: 09/19/23 12:09 Dose: 33 mls/hr Documented By: TATE Methylprednisolone (Methylprednisolone 125 Mg/2 Ml Vial) Confirm Administered Dose 125 mg .ROUTE .STK-MED ONE Stop: 09/19/23 07:29 Last Admin: 09/19/23 07:34 Dose: 125 mg Documented By: FRANKIE Methylprednisolone (Methylprednisolone 125 Mg/2 Ml Vial) 125 mg IV NOW STA Stop: 09/19/23 07:42 Last Admin: 09/19/23 07:59 Dose: Not Given Documented By: DAYNA Imaging Data Radiologist's Impression: Chest X-Ray 09/19/23 07:38 XR chest 1V portable HISTORY: 68 years-old Male sob acute shortness of breath COMPARISON: 05/11/2020 TECHNIQUE: AP view of the chest FINDINGS: Cardiac silhouette is normal in size. Mild chronic interstitial coarsening of the lung bases. No pneumothorax, pleural effusion or overt pulmonary edema. Degenerative changes of the shoulders and spine. Cervical spinal fusion hardware. IMPRESSION: No acute process. ACT 112: Negative or not required by law. The above report was generated using voice recognition software. It may contain grammatical, syntax or spelling errors. Electronically signed by: Andrews Villaseñor M.D. 09/19/2023 8:03 AM Discharge Plan Visit Data Chief Complaint: Allergic Reaction Stated Complaint: TALA SWOLLEN ED Provider: Cristofer Castillo Discharge Problem: Anaphylaxis, Allergic reaction, Hypoxia, Facial swelling Patient Disposition: Admitted As Inpatient Condition: Fair Discharge Instructions Interventions: ED Discharge Assessment Last Done: 09/19/23 12:35
--- NOTE | 2023-09-19 08:05 | XRay Report ---
XR chest 1V portable HISTORY: 68 years-old Male sob acute shortness of breath COMPARISON: 05/11/2020 TECHNIQUE: AP view of the chest FINDINGS: Cardiac silhouette is normal in size. Mild chronic interstitial coarsening of the lung bases. No pneu mothorax, pleural effusion or overt pulmonary edema. Degenerative changes of the shoulders and spine. Cervical spinal fusion hardware. IMPRESSION: No acute process. ACT 112: Negative or not required by law. The above report was generated using voice recognition software. It may contain grammatical, syntax o r spelling errors. Electronically signed by: Andrews Villaseñor M.D. 09/19/2023 8:03 AM
[2023-09-19 08:14] LABS: Creatinine Clr Calc Pharmacy 72.6 ml/min; Est GFR (Non-African American) 60.4 ml/min; Potassium 3.3 mmol/L (3.5-5.1)
[2023-09-19 08:19] LABS: Basophils # (auto) 0.04 K/uL (0.00-0.20); Basophils % (auto) 0.4 %; Eosinophils # (auto) 0.13 K/uL (0.00-0.50); Eosinophils % (auto) 1.3 %; Hematocrit (blood only) 49.8 % (42.0-52.0); Hemoglobin 17.5 g/dl (14.0-18.0); Immature Granulocytes # (auto) 0.06 K/uL (0.01-0.20); Immature Granulocytes % (auto) 0.6 %; Lymphocytes # (auto) 3.19 K/uL (1.20-3.40); Lymphocytes % (auto) 31.1 %; Mean Corpuscular Hemoglobin 29.3 pg (25.0-34.0); Mean Corpuscular Hgb Conc 35.1 g/dL (32.0-36.0); Mean Corpuscular Volume 83.3 fL (80.0-100.0); Mean Platelet Volume 10.6 fL (9.4-12.4); Monocytes # (auto) 0.77 K/uL (0.11-0.59); Monocytes % (auto) 7.5 %; Neutrophils # (auto) 6.08 K/uL (1.40-6.50); Neutrophils % (auto) 59.1 %; Platelet Count 350 K/uL (130-400); RDW Coefficient of Variation 13.1 % (11.5-14.5); RDW Standard Deviation 39.4 fL (36.4-46.3); Red Blood Count 5.98 M/uL (4.70-6.10); White Blood Count 10.27 K/ul (4.8-10.8)
--- NOTE | 2023-09-19 09:20 | History & Physical Report ---
Date of Service September 19, 2023 Assessment & Plan (1) Allergic reaction: (2) Angioedema: Plan: - Admit to med tele - Pt was administered solumedrol 125 mg IV, benadryl 50 mg IV, and famotidine 20 mg IV upon presentation in the ER for acute onset of angioedema after taking amoxicillin tablet for ingrown toenail. - Pt was also noted to be hypoxic initially which has improved with the above treatment--- currently no concerns for inability to protect airway, maintain on supplemental O2 and wean as tolerated - Continue with famotidine 20 mg BID, benadryl 25 mg Q6H, solumderol 60 mg Q8H and epi IM if needed. - Will add amoxicillin to allergy list - Will need to discuss with orthopedics regarding if he should continue antibiotic therapy prior to dental procedure with his multiple prosthesis and extensive knee and back surgeries - would just need an alternative antibiotic - Had used ibuprofen 600 mg daily for a long time with hx of chronic back pain , avoid nsaids today in the setting of angioedema, may use tylenol for pain (3) Hyperlipidemia: Plan: - Chronic, stable - Cont statin therapy (4) Hypertension: Plan: - Chronic, stable, - Trianterene/HCTZ at home (5) Osteoarthritis: Plan: - Chronic, uses methocarbamol for muscle spasms, stable DVT ppx. teds, scds LINES: 2 PIV GI/FEN: Allow clears and advance as tolerated with angioedema CODE: FULL Dispo: From home, likely to remain in the hospital x 1-2 days History of Present Illness Chief Complaint: Allergic reaction Primary Care Provider: Everett Lu MD This is a 68 yo M with PMHx of chronic back pain s/p lumbar spinal surgery, osteoarthitis, tobacco use, HLD, HTN and anxiety who presents to the hospital with acute onset of allergic reaction involving tongue swelling, lip swelling, itchy all over, and tingling all over. His speech is still garbled because of his tongue being swollen during time of my visit. He noticed difficulty breathing which started 30 minutes after taking an amoxicillin tablet but it has gone away since being treated here in the ER with medications. He called his son, Donavon, who brought him to the Er and is present for our conversation. He took the amoxicillin at home for an ingrown toenail. Its his R great toe, for which he states is tender, and used bacitracin ointment on it yesterday. Denies any surrounding redness or purulent drainage, but it is painful to touch. In regards to antibiotic or drug allergic reactions, he has no known drug or food allergies, and has never experienced any of these symptoms. He took his morning medications this morning prior to the amoxicillin. He has taken the antibiotic before prior to dental procedures, and has the prescription from his orthopedic provider because of multiple joint prosthesis implantations in R knee and multiple spinal surgeries in the past. His knee surgery was 5 years ago, and had spinal fusions prior to that. He has last seen ortho with Kevin Au about 2 years ago. Pt takes ibuprofen 600 mg daily every day for chronic back pain. Social Hx: chewing tobacco 1 can daily, drinks alcohol 5 beers daily - denies hx of withdrawal or shaking if he doesn't drink alcohol. Denies illicit drug use. Allergies Allergy/AdvReac Type Severity Reaction Status Date / Time Penicillins Allergy Severe Anaphylaxis Verified 09/19/23 09:37 Home Medications Medication Instructions Recorded Confirmed Type atorvastatin 20 mg tablet 20 mg PO QPM 02/10/20 09/19/23 History multivitamin 1 tab PO QAM 02/10/20 09/19/23 History triamterene 37.5 1 tab PO QAM 02/10/20 09/19/23 History mg-hydrochlorothiazide 25 mg tablet (Maxzide-25mg) amoxicillin 500 mg tablet 2,000 mg PO ONCE PRN prophylaxis 05/19/20 09/19/23 Rx #4 tabs aspirin 81 mg tablet,delayed 81 mg PO BID 42 days #0 tabs 08/23/20 09/19/23 Rx release ibuprofen 600 mg tablet 600 mg PO QAM 09/19/23 09/19/23 History Past Med/Surg History Medical History Degenerative disc disease Gout No recent flares Hard of hearing Hyperlipidemia Hypertension Osteoarthritis Surgical History Fusion of spine LUMBAR (4 TOTAL LUMBAR SURGERIES) CERVICAL (1 SURGERY) H/O cervical spine surgery History of arthroscopy LEFT KNEE History of colonoscopy X MULTIPLE History of ear surgery RT EAR DRUM SURGERY History of partial knee replacement (~04/2020) Left - 05/17/2020 [facility] History of tonsillectomy and adenoidectomy Hx of vasectomy Status post right partial knee replacement (~07/2020) [place] teeth removed Family History Other No family history of adverse response to anesthesia No significant family history Social History Smoking Status: Never smoker Second Hand Exposure: No; Do You Dip or Chew Tobacco: Yes (5 cans weekly); Hx Alcohol Use: Yes Alcohol type: beer Hx Substance Use: No Preferred Language: Polish Communication Ability: Effective 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 Beliefs That Will Affect Care: None marital status: Current Living Situation: Spouse and Family Feels Safe at Home: Yes Assistive Devices: Hearing Aid - Right and Walker Review of Systems Review of Systems: Constitutional: No fever, sweats or chills Eyes: No diplopia, no worsening or blurred vision ENT: + hard of hearing, + lip and tongue swelling, + trouble swallowing, now improving Respiratory: No cough, sputum, dyspnea at rest or on exertion Cardiovascular: No chest pain, tightness or palpitations Abdomen: No pain, nausea, vomiting, diarrhea or constipation Musculoskeletal: No joint pain, calf pain, swelling Back: Chronic back pain Neurologic: No weakness, no futher numbness/tingling, or balance problems Psychiatric: No anxiety or depression Skin: No rash or itch Physical Exam Physical Exam: Please refer to attending addendum for physical exam. Results & Data Results & Data Vital Signs (Past 12 Hours) Vital Signs Pulse Pulse Resp BP BP Pulse Ox O2 Del Method 09/19/23 08:45 74 17 97 Nasal Cannula 09/19/23 08:45 132/81 09/19/23 08:30 72 16 97 Nasal Cannula 09/19/23 08:30 137/74 09/19/23 08:15 73 16 98 Nasal Cannula 09/19/23 08:15 148/80 H 09/19/23 08:00 76 16 96 Nasal Cannula 09/19/23 08:00 162/78 H 09/19/23 07:45 76 15 96 Nasal Cannula 09/19/23 07:30 85 21 91 Nasal Cannula 09/19/23 07:30 136/84 09/19/23 07:27 91 H 17 88 L 09/19/23 07:27 120/80 09/19/23 07:47 76 22 136/84 96 Nasal Cannula 09/19/23 07:44 85 L Nasal Cannula 09/19/23 07:36 79 09/19/23 07:25 91 H 18 120/80 86 L Room Air O2 Flow Rate 09/19/23 08:45 2 09/19/23 08:45 09/19/23 08:30 2 09/19/23 08:30 09/19/23 08:15 2 09/19/23 08:15 09/19/23 08:00 2 09/19/23 08:00 09/19/23 07:45 2 09/19/23 07:30 2 09/19/23 07:30 09/19/23 07:27 09/19/23 07:27 09/19/23 07:47 2 09/19/23 07:44 09/19/23 07:36 09/19/23 07:25 Laboratory Results 09/19/23 09/19/23 07:30 07:30 WBC 10.27 RBC 5.98 Hgb 17.5 Hct 49.8 MCV 83.3 MCH 29.3 MCHC 35.1 RDW Std Deviation 39.4 RDW Coeff of Kylee 13.1 Plt Count 350 MPV 10.6 Immature Gran % (Auto) 0.6 Neut % (Auto) 59.1 Lymph % (Auto) 31.1 Banks % (Auto) 7.5 Eos % (Auto) 1.3 Baso % (Auto) 0.4 Neut # (Auto) 6.08 Lymph # (Auto) 3.19 Banks # (Auto) 0.77 H Eos # (Auto) 0.13 Baso # (Auto) 0.04 Immature Gran # (Auto) 0.06 Sodium 138 Potassium 3.3 L Chloride 102 Carbon Dioxide 24 Anion Gap 12 H BUN 16 Creatinine 1.23 Est Cr Clr Drug Dosing 72.6 Est GFR ( Amer) 70.0 Est GFR (Non-Af Amer) 60.4 BUN/Creatinine Ratio 13.0 Glucose 190 H Calcium 10.0 Diagnostic Findings Chest X-Ray 09/19/23 07:38 XR chest 1V portable HISTORY: 68 years-old Male sob acute shortness of breath COMPARISON: 05/11/2020 TECHNIQUE: AP view of the chest FINDINGS: Cardiac silhouette is normal in size. Mild chronic interstitial coarsening of the lung bases. No pneumothorax, pleural effusion or overt pulmonary edema. Dege nerative changes of the shoulders and spine. Cervical spinal fusion hardware. IMPRESSION: No acute process. ACT 112: Negative or not required by law. The above report was generated using voice recognition software. It may contain grammatical, syntax or spelling errors. Electronically signed by: Andrews Villaseñor M.D. 09/19/2023 8:03 AM Code Status & VTE Plan Code Status Full code Supervising Physician Co-Signing Physician Notes 68 year old man who presents with allergic reaction after taking amoxicillin. Reports he usually takes amoxicillin for Pre-Dental prophylaxis. However, he was having some discomfort in left big toe and felt it might be infected and took the amoxicillin. Within 30mins, he started feeling tingling sensation all over, pruritus, lip and tongue swelling, diaphoresis. Some shortness of breath. His son brought him to ER. He got Epi, solumedrol, famotidine and benadryl Reports feeling much better now. Reports no difficulty swallowing On exam, General: In no acute distress Eyes: PERRL, conjunctivae normal, not pale, anicteric sclerae, EOM intact bilaterally ENMT: External ear and nose normal, Lower lip swelling and tongue swelling (Patient/son reports this is much improved) Neck: Normal visual inspection, no tracheal deviation, no swelling noted Respiratory: Normal respiratory effort, no respiratory distress, lungs clear to auscultation, no crackles and no wheezes Cardiovascular: RRR S1 S2 Gastrointestinal (Abdomen): Abdomen is not distended, soft, non-tender to palpation, no guarding, no palpable hepatosplenomegaly, normal bowel sounds Musculoskeletal: No cyanosis or clubbing,No pedal edema. Skin: No rash noted on gross inspection Neurologic: Alert and oriented x 3, No focal weakness, sensation grossly intact Psychiatric: Euthymic affect Allergic reaction to Augmentin Penicillin allergy Advised to stop Augmentin. Patient likely on Antibiotic prophylaxis for dental procedure due to extensive hardware. Will need a different antibiotics for prophylaxis if Surgeon still wants him to continue prophylactic antibiotics Continue solumedrol, famotidine and benadryl Monitor airwary Needs epi pen on dc
[2023-09-19] MEDS: POTASSIUM CHLORIDE / WTR 10 MEQ/100 ML PLCT IV SCH ×2 (12:09→13:02)
[2023-09-19] MEDS ORDERED: ACETAMINOPHEN 325 MG TAB PO PRN (12:43)
[2023-09-19] MEDS ORDERED: methylPREDNISolone 125 MG/2 ML VIAL IV SCH (12:43)
[2023-09-19] MEDS ORDERED: ONDANSETRON INJ 2 MG/ML 2 ML VIAL IV PRN (12:43)
[2023-09-19] MEDS ORDERED: EPINEPHrine ADULT AUTO-INJECT 0.3 MG SYR IM PRN (12:43)
[2023-09-19] MEDS ORDERED: EPINEPHrine INJ 1 MG/ML AMP IM PRN (13:00)
[2023-09-19] MEDS: FAMOTIDINE 20 MG TAB PO SCH ×2 (14:47→21:44)
[2023-09-19] MEDS: diphenhydrAMINE Capsule 25 MG CAP PO SCH ×2 (14:47→21:43)
[2023-09-19] MEDS: methylPREDNISolone 60 MG in SYRINGE 0 ML IV SCH ×2 (17:31→22:59)
[2023-09-19] MEDS ORDERED: ATORVASTATIN 20 MG TAB PO SCH (21:00)
[2023-09-20] MEDS: diphenhydrAMINE Capsule 25 MG CAP PO SCH ×2 (00:46→06:01)
[2023-09-20] MEDS: methylPREDNISolone 60 MG in SYRINGE 0 ML IV SCH (06:00)
[2023-09-20 07:47] LABS: BUN Creatinine Ratio 17.3 (10-20); Calcium 9.3 mg/dl (8.6-10.3); Creatinine Clr Calc Pharmacy 110.2 ml/min; Est GFR (African American) 106.6 ml/min; Potassium 4.1 mmol/L (3.5-5.1)
[2023-09-20 08:21] LABS: Hematocrit (blood only) 37.9 % (42.0-52.0); Hemoglobin 13.2 g/dl (14.0-18.0); Mean Corpuscular Hemoglobin 29.6 pg (25.0-34.0); Mean Corpuscular Hgb Conc 34.8 g/dL (32.0-36.0); Mean Platelet Volume 10.5 fL (9.4-12.4); Platelet Count 216 K/uL (130-400); RDW Coefficient of Variation 13.2 % (11.5-14.5); RDW Standard Deviation 40.6 fL (36.4-46.3); Red Blood Count 4.46 M/uL (4.70-6.10); White Blood Count 14.15 K/ul (4.8-10.8)
[2023-09-20] MEDS ORDERED: TRIAMTERENE/HCTZ 37.5/25MG TAB PO SCH (09:00)
[2023-09-20] MEDS ORDERED: ASPIRIN 81 MG ECTAB PO SCH (09:00)
[2023-09-20] MEDS: FAMOTIDINE 20 MG TAB PO SCH (09:38)
--- NOTE | 2023-09-20 11:24 | Discharge Summary ---
Date of Service September 20, 2023 Admission HPI Per Admitting Provider This is a 68 yo M with PMHx of chronic back pain s/p lumbar spinal surgery, osteoarthritis, tobacco use, HLD, HTN and anxiety who presents to the hospital with acute onset of allergic reaction involving tongue swelling, lip swelling, itchy all over, and tingling all over. His speech is still garbled because of his tongue being swollen during time of my visit. He noticed difficulty breathing which started 30 minutes after taking an amoxicillin tablet but it has gone away since being treated here in the ER with medications. He called his son, Donavon, who brought him to the Er and is present for our conversation. He took the amoxicillin at home for an ingrown toenail. Its his R great toe, for which he states is tender, and used bacitracin ointment on it yesterday. Denies any surrounding redness or purulent drainage, but it is painful to touch. In regards to antibiotic or drug allergic reactions, he has no known drug or food allergies, and has never experienced any of these symptoms. He took his morning medications this morning prior to the amoxicillin. He has taken the antibiotic before prior to dental procedures, and has the prescription from his orthopedic provider because of multiple joint prosthesis implantations in R knee and multiple spinal surgeries in the past. His knee surgery was 5 years ago, and had spinal fusions prior to that. He has last seen ortho with Kevin Au about 2 years ago. Pt takes ibuprofen 600 mg daily every day for chronic back pain. Social Hx: chewing tobacco 1 can daily, drinks alcohol 5 beers daily - denies hx of withdrawal or shaking if he doesn't drink alcohol. Denies illicit drug use. Admission Exam Per Admitting Provider General: In no acute distress Eyes: PERRL, conjunctivae normal, not pale, anicteric sclerae, EOM intact bilaterally ENMT: External ear and nose normal, Lower lip swelling and tongue swelling (Patient/son reports this is much improved) Neck: Normal visual inspection, no tracheal deviation, no swelling noted Respiratory: Normal respiratory effort, no respiratory distress, lungs clear to auscultation, no crackles and no wheezes Cardiovascular: RRR S1 S2 Gastrointestinal (Abdomen): Abdomen is not distended, soft, non-tender to palpation, no guarding, no palpable hepatosplenomegaly, normal bowel sounds Musculoskeletal: No cyanosis or clubbing,No pedal edema. Skin: No rash noted on gross inspection Neurologic: Alert and oriented x 3, No focal weakness, sensation grossly intact Psychiatric: Euthymic affect Principal Diagnosis Allergic rx Discharge Exam General: WD/WN M in NAD Eyes: PERRL, conjunctivae normal, EOM intact bilaterally ENMT: External ear and nose normal, no lip or tongue swelling (resolved) Neck: Normal visual inspection, no tracheal deviation, no swelling noted Respiratory: Normal respiratory effort, no respiratory distress, lungs clear to auscultation, no crackles and no wheezes Cardiovascular: RRR S1 S2 Gastrointestinal (Abdomen): Abdomen is not distended, soft, non-tender to palpation, no guarding, normal bowel sounds Musculoskeletal: No pedal edema, moves extremities Skin: No rash noted on gross inspection Neurologic: Alert and oriented x 3, No focal weakness, answers appropriately, no facial asymmetry, moves extremities Discharge Data Allergies Allergy/AdvReac Type Severity Reaction Status Date / Time Penicillins Allergy Severe Anaphylaxis Verified 09/19/23 09:37 Consultations 09/19/23 08:55 ED Decision to Admit Stat Hospital Course (1) Allergic reaction: (2) Angioedema: - Pt was administered solumedrol 125 mg IV, benadryl 50 mg IV, and famotidine 20 mg IV upon presentation in the ER for acute onset of angioedema after taking amoxicillin tablet for ingrown toenail. - Pt was also noted to be hypoxic initially which has improved with the above treatment--- currently no concerns for inability to protect airway, maintain on supplemental O2 and wean as tolerated - Continue with famotidine 20 mg BID, benadryl 25 mg Q6H, solumderol 60 mg Q8H and epi IM if needed. - added amoxicillin to allergy list - Discussed w/ orthopedics - per their policies after joint replacement they use amoxicillin first line, pt can use clindamycin pre-dental procedures since he has developed allergic reaction to this. - edema has completely resolved, no hypoxia - pt wants to be discharged - will discharge on prednisone, benadryl, famotidine and will have close follow up with PCP. (3) Hyperlipidemia: - Chronic, stable - Cont statin therapy (4) Hypertension: - Chronic, stable, - Trianterene/HCTZ at home (5) Osteoarthritis: - Chronic, uses methocarbamol for muscle spasms, stable Total Time Total Time Spent Total Time Spent (In Minutes): 40 Discharge Plan Discharge Items Patient Disposition: Home - Self-Care Reason For Visit: ALLERGIC REACTION Discharge Diagnosis: Allergic rx Condition on Discharge: Fair Activity: Per Instructions section Non-emergency contact: Primary Care Provider Call non-emergency contact if: you have any medication questions and your symptoms worsen Follow-up/Referrals: Everett Lu MD [Primary Care Provider] - (Date & Time 09/27/2023 10:00 AM Provider Everett Lu MD [facility] ) Diet: Regular Addtl Attending Provider Instructions: Follow up with primary care doctor within 1 week. The appointment was scheduled for you for 09/27/2023. Take prednisone, famotidine, benadryl, for next few days, as prescribed. Pending Studies at Discharge: No Stand-Alone Forms: My [facility] [employer], Smoking Cessation Medications and DC Order Prescriptions: New diphenhydramine HCl [Benadryl] 25 mg Capsule 25 mg PO Q6H 3 Days Qty: 12 0RF famotidine 20 mg Tablet 20 mg PO BID 3 Days Qty: 6 0RF prednisone 20 mg tablet 40 mg PO DAILY 3 Days Qty: 6 0RF Continued multivitamin Tablet 1 tab PO QAM atorvastatin 20 mg Tablet 20 mg PO QPM triamterene-hydrochlorothiazid [Maxzide-25mg] 37.5-25 mg Tablet 1 tab PO QAM aspirin 81 mg tablet,delayed release (DR/EC) 81 mg PO BID 42 Days Qty: 0 0RF ibuprofen 600 mg Tablet 600 mg PO QAM Discontinued amoxicillin 500 mg tablet 2,000 mg PO ONCE PRN (Reason: prophylaxis) Qty: 4 2RF Rx Instructions: ONE HOUR PRIOR TO DENTAL PROCEDURE Discharge Orders: Discharge Order (Routine); Ordered 09/20/23 Ordered By: Rojas Silva Admission Data Admit Date/Time: 09/19/23 09:07 Attending Provider: Rojas Silva Admit Provider: Priyanka Du I. Primary Care Provider: Everett Lu Other Providers: Priyanka Du I.
--- NOTE | 2023-09-20 21:02 | Electrocardiogram Report ---
Test Reason : Blood Pressure : / mmHG Vent. Rate : 091 BPM Atrial Rate : 091 BPM P-R Int : 148 ms QRS Dur : 084 ms QT Int : 382 ms P-R-T Axes : 070 -32 061 degrees QTc Int : 469 ms Normal sinus rhythm Left axis deviation Nonspecific ST abnormality Abnormal ECG When compared with ECG of 01-JAN-2021 11:46, No significant change was found Confirmed by Yfn Back ([id number]) on 09/20/2023 9:02:41 PM Referred By: REFERRED SELF Confirmed By:Yfn Back
== END 2023-09-20 12:37 | disposition home or self-care (01) | DRG 916 ==
LOC: ED 07:10 → SUATTDRO 09:07 → EDINP 09:07 → 2N 12:35